=== PATIENT | male | born 1985 | race Two or more races ===

== ENCOUNTER 2024-03-24 15:55 | Inpatient (IN) | payer MEDICAID ==
[~2024-03-24] VITALS: Ht 182.9 cm; Wt 97.3 kg
[2024-03-24] MEDS: HALOPERIDOL LACTATE 5 MG/ML VIAL IM ONE (19:30)
[2024-03-24] MEDS: LORazepam 2 MG/ML VIAL IM ONE (19:31)
[2024-03-24] MEDS: DiphenhydrAMINE HCL 50 MG/ML VIAL IM ONE (19:31)
[2024-03-24 21:17] LABS: BASOPHILS % (AUTO) 0.9 % (0.0-2.0); EOSINOPHILS % (AUTO) 2.9 % (1.0-6.0); HEMATOCRIT 43.8 % (41-53); HEMOGLOBIN 14.5 g/dL (13.5-17.5); LYMPHOCYTES # (AUTO) 3.3 K/uL (1.0-4.8); LYMPHOCYTES % (AUTO) 35.8 % (22.0-44.0); MEAN CORPUSCULAR HEMOGLOBIN 29.3 pg (26.0-34.0); MEAN CORPUSCULAR HGB CONC 33.2 G/dL (31.0-37.0); MEAN CORPUSCULAR VOLUME 88 fL (80-100); MONOCYTES # (AUTO) 0.8 K/uL (0.1-1.0); NEUTROPHILS # (AUTO) 4.7 K/uL (1.8-7.7); NEUTROPHILS % (AUTO) 51.4 % (40.0-70.0); PLATELET COUNT (AUTO) 236 K/uL (150-450); RED BLOOD CELL COUNT(AUTO) 4.96 MIL/uL (4.50-5.90); RED CELL DISTRIBUTION WIDTH 14.2 % (11.5-14.5); WHITE BLOOD COUNT (AUTO) 9.2 K/uL (4.5-11.0)
[2024-03-24 21:25] LABS: COVID AG,FIA SOURCE NASAL SWAB
[2024-03-24 21:34] LABS: ANION GAP 10 mmol/L (8-16); CALCIUM, TOTAL 8.5 mg/dL (8.8-10.5); CARBON DIOXIDE 26 mmol/L (22-29); CHLORIDE 102 mmol/L (98-107); CREATININE 0.99 mg/dL (0.60-1.30); GLOMERULAR FILTR. RATE CALC > 60 mL/min (>60); GLUCOSE,RANDOM 88 mg/dL (70-110); SODIUM SERUM 138 mmol/L (136-145); UREA NITROGEN, BLOOD 11 mg/dL (7-18)
[2024-03-24 22:03] LABS: SARS-COV2 (COVID) ANTIGEN,FIA Negative (Negative)
[2024-03-24 22:06] LABS: ALCOHOL, BLOOD (SERUM) < 3 mg/dL (0-10)
[2024-03-25 10:39] VITALS: BP 139/85; PULSE 69; RESP 17; TEMP 97.6; O2SAT 99
[2024-03-25] MEDS ORDERED: OLANZapine 5 MG TABLET PO PRN (13:00)
[2024-03-25] MEDS: DIVALPROEX SODIUM 500 MG DR TABLET PO SCH (15:42)
[2024-03-25 22:28] VITALS: BP 136/86; PULSE 107; RESP 18; TEMP 97.1; O2SAT 98
[2024-03-26] MEDS ORDERED: HALOPERIDOL 5 MG TABLET PO PRN (07:15)
[2024-03-26] MEDS ORDERED: LORazepam 2 MG TABLET PO PRN (07:15)
[2024-03-26] MEDS ORDERED: NICOTINE 14 MG/24 HOUR PATCH TD PRN (09:45)
[2024-03-26] MEDS ORDERED: MAG HYDROX/ALUMINUM HYD/SIMETH ES 30 ML SUSPENSION UDCUP PO PRN (09:45)
[2024-03-26] MEDS ORDERED: PETROLATUM,WHITE 28 GM JELLY TP PRN (09:45)
[2024-03-26] MEDS ORDERED: DOCUSATE SODIUM 100 MG CAPSULE PO PRN (09:45)
[2024-03-26] MEDS ORDERED: ONDANSETRON 4 MG TABLET PO PRN (09:45)
[2024-03-26] MEDS ORDERED: MAGNESIUM HYDROXIDE SUSPENSION 30 ML UDCUP PO PRN (09:45)
[2024-03-26] MEDS ORDERED: IBUPROFEN 400 MG TABLET PO PRN (09:45)
[2024-03-26] MEDS ORDERED: ALBUTEROL SULFATE HFA 90 MCG/PUFF 8 GM INHALER IH PRN (09:45)
[2024-03-26] MEDS ORDERED: LOPERAMIDE HCL 2 MG CAPSULE PO PRN (09:45)
[2024-03-26] MEDS ORDERED: CloNIDine HCL 0.1 MG TABLET PO PRN (09:45)
[2024-03-26] MEDS ORDERED: ACETAMINOPHEN 325 MG TABLET PO PRN (09:45)
[2024-03-26] MEDS ORDERED: GuaiFENesin/D-METHORPHAN [SUGAR-FREE] 200-20MG/10 ML SYRUP UDCUP PO PRN (09:45)
[2024-03-26 11:06] VITALS: BP 139/99; PULSE 96; RESP 18; TEMP 97.1; O2SAT 95
[2024-03-26 13:27] LABS: APPEARANCE,URINE CLEAR (CLEAR); BILIRUBIN,URINE NEGATIVE (NEGATIVE); COLOR,URINE YELLOW (YELLOW); GLUCOSE, URINE (UA) NEGATIVE (NEGATIVE); KETONES,URINE TRACE mg/dL (NEGATIVE); LEUKOCYTE ESTERASE ,URINE NEGATIVE (NEGATIVE); NITRATE,URINE NEGATIVE (NEGATIVE); OCCULT BLOOD,URINE NEGATIVE (NEGATIVE); PROTEIN,URINE TRACE mg/dL (NEGATIVE); SPECIFIC GRAVITIY, URINE 1.029 (1.003-1.030)
[2024-03-26 13:40] LABS: ALCOHOL, URINE DRUG SCREEN NEGATIVE (NEGATIVE); AMPHET/METH SCREEN,URINE NEGATIVE (NEGATIVE); BARBITURATE SCREEN, URINE NEGATIVE (NEGATIVE); BENZODIAZEPINES SCREEN,URINE NEGATIVE (NEGATIVE); CANNABINOID SCREEN,URINE POSITIVE (NEGATIVE); COCAINE SCREEN,URINE NEGATIVE (NEGATIVE); METHADONE SCREEN, URINE NEGATIVE (NEGATIVE); OPIATE SCREEN,URINE NEGATIVE (NEGATIVE); PHENCYCLIDINE SCREEN,URINE NEGATIVE (NEGATIVE)
[2024-03-26 20:02] VITALS: RESP 18; TEMP 97.1
[2024-03-26] MEDS: ZOLPIDEM TARTRATE 10 MG TABLET PO PRN (21:14)
[2024-03-27 08:09] VITALS: BP 120/80; PULSE 70; RESP 17; TEMP 98; O2SAT 96
[2024-03-27 21:45] VITALS: RESP 18
[2024-03-28 08:32] VITALS: BP 121/69; PULSE 100; RESP 17; TEMP 97.3; O2SAT 98
[2024-03-28 08:49] LABS: CHOL/HDL RATIO 6.8 (4.2-7.3); THYROID STIMULATING HORMONE 5.23 uIU/mL (0.36-3.74)
[2024-03-28 20:22] VITALS: BP 144/94; PULSE 87; RESP 18; TEMP 97.7; O2SAT 98
[2024-03-29 09:14] VITALS: BP 132/83; PULSE 84; RESP 19; TEMP 97.1; O2SAT 97
[2024-03-29 20:32] VITALS: BP 129/76; PULSE 80; RESP 18; TEMP 97.6
[2024-03-30 08:49] VITALS: BP 134/90; PULSE 81; RESP 18; TEMP 97.3
[2024-03-30 20:37] VITALS: BP 132/86; PULSE 86; RESP 18; TEMP 97.3
[2024-03-31 08:08] VITALS: BP 115/76; PULSE 98; RESP 18; TEMP 97.5; O2SAT 98
[2024-03-31 20:10] VITALS: BP 132/67; PULSE 79; RESP 18; TEMP 97.3; O2SAT 98
[2024-04-01 08:07] VITALS: BP 137/89; PULSE 87; RESP 18; TEMP 97.2; O2SAT 96
[2024-04-01 20:19] VITALS: BP 134/76; PULSE 78; RESP 18; TEMP 97.9; O2SAT 98
[2024-04-02 08:10] VITALS: BP 115/85; PULSE 87; RESP 18; TEMP 98.2; O2SAT 98
[2024-04-02] MEDS ORDERED: DIVA-112 PO (12:00)
== END 2024-04-02 19:40 | disposition home or self-care (01) | DRG 750 ==
LOC: EMS 16:00 → 3EC 03-25 08:44
PROVIDERS: ADMIT Psychiatry & Neurology Child & Adolescent Psychiatry; ATTEND Psychiatry & Neurology Child & Adolescent Psychiatry
PROC: GZHZZZZ Group Psychotherapy (ICD-10-PCS; principal; 2024-03-26)
PROC: GZ52ZZZ Individual Psychotherapy, Cognitive (ICD-10-PCS; 2024-03-26)
DX: F25.9 Schizoaffective disorder, unspecified (principal); E86.0 Dehydration; I10 Essential (primary) hypertension; Z20.822 Contact with and (suspected) exposure to COVID-19; F12.10 Cannabis abuse, uncomplicated; F84.0 Autistic disorder; Z79.899 Other long term (current) drug therapy
CPT/HCPCS: 80048; 80061; 80164; 80307; 81003; 83036; 84443; 85025; 99285; G0480; J1200; J1630; J2060

== ENCOUNTER 2024-07-13 09:09 | Emergency (ER) | payer MEDICAID ==
[~2024-07-13] VITALS: Ht 188 cm; Wt 102.0 kg
[~2024-07-13 09:09] MED LIST: DIVA-112 PO; GUAN1TAB22 PO; LITH300C3 PO; OMEG100033 PO; RISP-32 PO
[2024-07-13 09:52] VITALS: TEMP 98.6
[2024-07-13 10:13] LABS: COVID AG,FIA SOURCE NASAL SWAB
[2024-07-13 10:38] LABS: SARS-COV2 (COVID) ANTIGEN,FIA Negative (Negative)
[2024-07-13 11:37] LABS: BASOPHILS % (AUTO) 1.1 % (0.0-2.0); EOSINOPHILS % (AUTO) 1.7 % (1.0-6.0); HEMATOCRIT 42.5 % (41-53); HEMOGLOBIN 14.1 g/dL (13.5-17.5); LYMPHOCYTES % (AUTO) 24.6 % (22.0-44.0); MEAN CORPUSCULAR HEMOGLOBIN 30.4 pg (26.0-34.0); MEAN CORPUSCULAR HGB CONC 33.3 G/dL (31.0-37.0); MEAN CORPUSCULAR VOLUME 91 fL (80-100); MONOCYTES # (AUTO) 0.9 K/uL (0.1-1.0); MONOCYTES % (AUTO) 7.7 % (2.0-9.0); NEUTROPHILS # (AUTO) 7.8 K/uL (1.8-7.7); NEUTROPHILS % (AUTO) 64.9 % (40.0-70.0); PLATELET COUNT (AUTO) 333 K/uL (150-450); RED BLOOD CELL COUNT(AUTO) 4.65 MIL/uL (4.50-5.90); RED CELL DISTRIBUTION WIDTH 13.3 % (11.5-14.5); WHITE BLOOD COUNT (AUTO) 12.1 K/uL (4.5-11.0)
[2024-07-13 11:46] LABS: ANION GAP 12 mmol/L (8-16); CALCIUM, TOTAL 8.5 mg/dL (8.8-10.5); CARBON DIOXIDE 25 mmol/L (22-29); CHLORIDE 103 mmol/L (98-107); CREATININE 1.01 mg/dL (0.60-1.30); GLOMERULAR FILTR. RATE CALC > 60 mL/min (>60); GLUCOSE,RANDOM 97 mg/dL (70-110); POTASSIUM 3.9 mmol/L (3.5-5.1); SODIUM SERUM 140 mmol/L (136-145); UREA NITROGEN, BLOOD 8 mg/dL (7-18)
[2024-07-13] MEDS: DiphenhydrAMINE HCL 50 MG/ML VIAL IM ONE (12:13)
[2024-07-13] MEDS: HALOPERIDOL LACTATE 5 MG/ML VIAL IM ONE (12:13)
[2024-07-13] MEDS: LORazepam 2 MG/ML VIAL IM ONE (12:14)
[2024-07-13 12:23] LABS: ALCOHOL, BLOOD (SERUM) < 3 mg/dL (0-10)
[2024-07-13 15:05] LABS: APPEARANCE,URINE CLEAR (CLEAR); BILIRUBIN,URINE NEGATIVE (NEGATIVE); COLOR,URINE LIGHT YELLOW (YELLOW); GLUCOSE, URINE (UA) NEGATIVE (NEGATIVE); KETONES,URINE NEGATIVE (NEGATIVE); LEUKOCYTE ESTERASE ,URINE NEGATIVE (NEGATIVE); NITRATE,URINE NEGATIVE (NEGATIVE); OCCULT BLOOD,URINE NEGATIVE (NEGATIVE); PH,URINE 6.5 (5.0-8.0); PH,URINE DRUG SCREEN 6.5 (5.0-8.0); PROTEIN,URINE NEGATIVE (NEGATIVE); SPECIFIC GRAVITIY, URINE 1.011 (1.003-1.030); UROBILINOGEN,URINE <=1.0 mg/dL (<=1.0)
[2024-07-13 15:21] LABS: ALCOHOL, URINE DRUG SCREEN NEGATIVE (NEGATIVE); AMPHET/METH SCREEN,URINE NEGATIVE (NEGATIVE); BARBITURATE SCREEN, URINE NEGATIVE (NEGATIVE); BENZODIAZEPINES SCREEN,URINE NEGATIVE (NEGATIVE); CANNABINOID SCREEN,URINE NEGATIVE (NEGATIVE); COCAINE SCREEN,URINE NEGATIVE (NEGATIVE); METHADONE SCREEN, URINE NEGATIVE (NEGATIVE); OPIATE SCREEN,URINE NEGATIVE (NEGATIVE); PHENCYCLIDINE SCREEN,URINE NEGATIVE (NEGATIVE)
[2024-07-13 18:01] VITALS: BP 105/53; PULSE 80; RESP 16; O2SAT 99
== END 2024-07-13 18:35 | disposition admitted as inpatient to this hospital (09) ==
LOC: EMS 09:09
DX: F25.0 Schizoaffective disorder, bipolar type (principal); F84.0 Autistic disorder; Z79.899 Other long term (current) drug therapy; Z20.822 Contact with and (suspected) exposure to COVID-19
CPT/HCPCS: 99291; 87426; 80048; 85025; 36415; 96372; 80307; 81003; G0480; J1200; J1630; J2060

== ENCOUNTER 2024-07-27 08:41 | Emergency (ER) | payer MEDICAID ==
[~2024-07-27] VITALS: Ht 205.7 cm; Wt 89.2 kg
[~2024-07-27 08:41] MED LIST changes: -OMEG100033 PO
[2024-07-27 10:17] VITALS: BP 147/70; PULSE 73; RESP 16; TEMP 98.7; O2SAT 98
[2024-07-27 10:27] LABS: BASOPHILS % (AUTO) 0.6 % (0.0-2.0); EOSINOPHILS % (AUTO) 1.5 % (1.0-6.0); HEMATOCRIT 44.6 % (41-53); HEMOGLOBIN 14.5 g/dL (13.5-17.5); LYMPHOCYTES # (AUTO) 2.6 K/uL (1.0-4.8); LYMPHOCYTES % (AUTO) 19.4 % (22.0-44.0); MEAN CORPUSCULAR HEMOGLOBIN 30.1 pg (26.0-34.0); MEAN CORPUSCULAR HGB CONC 32.7 G/dL (31.0-37.0); MEAN CORPUSCULAR VOLUME 92 fL (80-100); MONOCYTES % (AUTO) 7.2 % (2.0-9.0); NEUTROPHILS # (AUTO) 9.5 K/uL (1.8-7.7); NEUTROPHILS % (AUTO) 71.3 % (40.0-70.0); PLATELET COUNT (AUTO) 284 K/uL (150-450); RED BLOOD CELL COUNT(AUTO) 4.83 MIL/uL (4.50-5.90); RED CELL DISTRIBUTION WIDTH 13.5 % (11.5-14.5); WHITE BLOOD COUNT (AUTO) 13.4 K/uL (4.5-11.0)
[2024-07-27 10:42] LABS: ANION GAP 10 mmol/L (8-16); CALCIUM, TOTAL 8.6 mg/dL (8.8-10.5); CARBON DIOXIDE 27 mmol/L (22-29); CHLORIDE 102 mmol/L (98-107); CREATININE 1.03 mg/dL (0.60-1.30); GLOMERULAR FILTR. RATE CALC > 60 mL/min (>60); GLUCOSE,RANDOM 90 mg/dL (70-110); SODIUM SERUM 139 mmol/L (136-145); UREA NITROGEN, BLOOD 5 mg/dL (7-18)
[2024-07-27 11:22] LABS: ALCOHOL, BLOOD (SERUM) < 3 mg/dL (0-10)
[2024-07-27 11:29] LABS: COVID AG,FIA SOURCE NASAL SWAB
[2024-07-27 11:33] LABS: APPEARANCE,URINE CLEAR (CLEAR); BILIRUBIN,URINE NEGATIVE (NEGATIVE); COLOR,URINE LIGHT YELLOW (YELLOW); GLUCOSE, URINE (UA) NEGATIVE (NEGATIVE); KETONES,URINE NEGATIVE (NEGATIVE); LEUKOCYTE ESTERASE ,URINE NEGATIVE (NEGATIVE); NITRATE,URINE NEGATIVE (NEGATIVE); OCCULT BLOOD,URINE NEGATIVE (NEGATIVE); PROTEIN,URINE NEGATIVE (NEGATIVE); SPECIFIC GRAVITIY, URINE 1.008 (1.003-1.030); UROBILINOGEN,URINE <=1.0 mg/dL (<=1.0)
[2024-07-27 12:04] LABS: ALCOHOL, URINE DRUG SCREEN NEGATIVE (NEGATIVE); AMPHET/METH SCREEN,URINE NEGATIVE (NEGATIVE); BARBITURATE SCREEN, URINE NEGATIVE (NEGATIVE); BENZODIAZEPINES SCREEN,URINE NEGATIVE (NEGATIVE); CANNABINOID SCREEN,URINE NEGATIVE (NEGATIVE); COCAINE SCREEN,URINE NEGATIVE (NEGATIVE); METHADONE SCREEN, URINE NEGATIVE (NEGATIVE); OPIATE SCREEN,URINE NEGATIVE (NEGATIVE); PHENCYCLIDINE SCREEN,URINE NEGATIVE (NEGATIVE)
[2024-07-27 12:04] LABS: SARS-COV2 (COVID) ANTIGEN,FIA Negative (Negative)
== END 2024-07-27 14:31 | disposition home or self-care (01) ==
LOC: EMS 08:43
DX: F84.0 Autistic disorder (principal); F20.9 Schizophrenia, unspecified; Z79.899 Other long term (current) drug therapy; Z20.822 Contact with and (suspected) exposure to COVID-19
CPT/HCPCS: 99285; 87426; 80048; 81003; 85025; 36415; 80307; G0480

== ENCOUNTER 2024-07-27 18:10 | Emergency (ER) | payer MEDICAID, OTHER ==
[~2024-07-27] VITALS: Ht 177.8 cm; Wt 95.8 kg
[2024-07-27 19:51] VITALS: TEMP 98.7
[2024-07-27] MEDS: DIVALPROEX SODIUM 250 MG DR TABLET PO ONE (22:13)
[2024-07-27] MEDS: RisperiDONE 1 MG TABLET PO ONE (22:13)
[2024-07-27] MEDS: GuanFACINE HCL 1 MG TABLET PO ONE (22:20)
[2024-07-28 06:35] VITALS: BP 118/65; PULSE 80; RESP 18; O2SAT 99
== END 2024-07-28 06:36 | disposition home or self-care (01) ==
LOC: EMS 18:10
DX: F20.9 Schizophrenia, unspecified (principal); F84.0 Autistic disorder; Z79.899 Other long term (current) drug therapy
CPT/HCPCS: 99285; Z7502; Z7610

== ENCOUNTER 2024-07-28 13:00 | Inpatient (IN) | payer MEDICAID, OTHER ==
[~2024-07-28] VITALS: Ht 172.7 cm; Wt 85.8 kg
[~2024-07-28 13:00] MED LIST changes: -GUAN1TAB22 PO; +GUAN1TAB63 PO
[2024-07-28 14:44] LABS: BASOPHILS % (AUTO) 0.5 % (0.0-2.0); EOSINOPHILS % (AUTO) 1.6 % (1.0-6.0); HEMATOCRIT 43.7 % (41-53); HEMOGLOBIN 14.3 g/dL (13.5-17.5); LYMPHOCYTES # (AUTO) 2.8 K/uL (1.0-4.8); LYMPHOCYTES % (AUTO) 18.9 % (22.0-44.0); MEAN CORPUSCULAR HGB CONC 32.7 G/dL (31.0-37.0); MEAN CORPUSCULAR VOLUME 92 fL (80-100); MONOCYTES # (AUTO) 1.1 K/uL (0.1-1.0); MONOCYTES % (AUTO) 7.5 % (2.0-9.0); NEUTROPHILS # (AUTO) 10.5 K/uL (1.8-7.7); NEUTROPHILS % (AUTO) 71.5 % (40.0-70.0); PLATELET COUNT (AUTO) 310 K/uL (150-450); RED BLOOD CELL COUNT(AUTO) 4.76 MIL/uL (4.50-5.90); RED CELL DISTRIBUTION WIDTH 13.9 % (11.5-14.5); WHITE BLOOD COUNT (AUTO) 14.7 K/uL (4.5-11.0)
[2024-07-28 14:49] LABS: ANION GAP 12 mmol/L (8-16); CALCIUM, TOTAL 8.9 mg/dL (8.8-10.5); CARBON DIOXIDE 28 mmol/L (22-29); CHLORIDE 103 mmol/L (98-107); GLOMERULAR FILTR. RATE CALC > 60 mL/min (>60); GLUCOSE,RANDOM 101 mg/dL (70-110); SODIUM SERUM 142 mmol/L (136-145); UREA NITROGEN, BLOOD 6 mg/dL (7-18)
[2024-07-28 15:03] LABS: ALCOHOL, BLOOD (SERUM) < 3 mg/dL (0-10)
[2024-07-28 15:49] LABS: COVID AG,FIA SOURCE NASAL SWAB
[2024-07-28 16:06] LABS: SARS-COV2 (COVID) ANTIGEN,FIA Negative (Negative)
[2024-07-28 20:30] VITALS: BP 154/99; PULSE 83; RESP 18; TEMP 97.2; O2SAT 99
[2024-07-28] MEDS ORDERED: INFLUENZA VIRUS VACCINE TVS (6MO+) 2024-25/PF 45 MCG/0.5 ML SYRINGE IM. ONE (21:30)
[2024-07-29 08:22] VITALS: BP 132/73; PULSE 98; RESP 17; TEMP 97.8; O2SAT 96
[2024-07-29 08:23] VITALS: BP 132/73; PULSE 98; RESP 17; TEMP 97.8; O2SAT 96
[2024-07-29 08:30] VITALS: BP 132/73; PULSE 98; RESP 17; TEMP 97.8; O2SAT 96
[2024-07-29 09:13] LABS: HEMOGLOBIN A1C 5.1 % (3.8-5.6)
[2024-07-29 09:19] LABS: CHOL/HDL RATIO 4.4 (4.2-7.3)
[2024-07-29 09:22] LABS: LITHIUM 0.2 mmol/L (0.60-1.20)
[2024-07-29] MEDS ORDERED: ALBUTEROL SULFATE HFA 90 MCG/PUFF 8 GM INHALER IH PRN (09:45)
[2024-07-29] MEDS ORDERED: NICOTINE 14 MG/24 HOUR PATCH TD PRN (09:45)
[2024-07-29] MEDS ORDERED: MAGNESIUM HYDROXIDE SUSPENSION 30 ML UDCUP PO PRN (09:45)
[2024-07-29] MEDS ORDERED: ACETAMINOPHEN 325 MG TABLET PO PRN (09:45)
[2024-07-29] MEDS ORDERED: IBUPROFEN 400 MG TABLET PO PRN (09:45)
[2024-07-29] MEDS ORDERED: PETROLATUM,WHITE 28 GM JELLY TP PRN (09:45)
[2024-07-29] MEDS ORDERED: MAG HYDROX/ALUMINUM HYD/SIMETH ES 30 ML SUSPENSION UDCUP PO PRN (09:45)
[2024-07-29] MEDS ORDERED: LOPERAMIDE HCL 2 MG CAPSULE PO PRN (09:45)
[2024-07-29] MEDS ORDERED: ONDANSETRON 4 MG TABLET PO PRN (09:45)
[2024-07-29] MEDS ORDERED: CloNIDine HCL 0.1 MG TABLET PO PRN (09:45)
[2024-07-29] MEDS ORDERED: DOCUSATE SODIUM 100 MG CAPSULE PO PRN (09:45)
[2024-07-29] MEDS: LITHIUM CARBONATE 300 MG CAPSULE PO SCH (16:06)
[2024-07-29] MEDS: DIVALPROEX SODIUM 500 MG ER TABLET PO SCH (16:06)
[2024-07-29] MEDS: RisperiDONE 2 MG TABLET PO SCH (16:06)
[2024-07-29 20:07] VITALS: BP 130/83; PULSE 72; RESP 16; TEMP 97.8; O2SAT 97
[2024-07-29 20:55] VITALS: BP 130/83; PULSE 72; RESP 18; TEMP 97.8; O2SAT 97
[2024-07-29] MEDS: LORazepam 2 MG TABLET PO PRN (21:03)
[2024-07-29] MEDS: GuanFACINE HCL 1 MG TABLET PO SCH (21:03)
[2024-07-29] MEDS: ZOLPIDEM TARTRATE 10 MG TABLET PO PRN (21:03)
[2024-07-29] MEDS: HALOPERIDOL 5 MG TABLET PO PRN (21:04)
[2024-07-30 08:07] VITALS: BP 110/67; PULSE 91; RESP 16; TEMP 97.6; O2SAT 97
[2024-07-30 10:00] VITALS: BP 110/67; PULSE 91; RESP 16; TEMP 97.6; O2SAT 0
[2024-07-30 20:04] VITALS: BP 147/87; PULSE 90; RESP 16; TEMP 98.1; O2SAT 98
[2024-07-30 21:11] VITALS: RESP 18
[2024-07-31 08:38] VITALS: BP 120/61; PULSE 68; RESP 17; TEMP 97.7; O2SAT 98
[2024-07-31 08:54] LABS: HEMOGLOBIN A1C 5.1 % (3.8-5.6)
[2024-07-31 09:13] LABS: CHOL/HDL RATIO 4.7 (4.2-7.3); THYROID STIMULATING HORMONE 5.93 uIU/mL (0.36-3.74)
[2024-07-31 20:39] VITALS: BP 121/56; PULSE 96; RESP 18; TEMP 97.7; O2SAT 99
[2024-08-01 08:30] VITALS: BP 106/62; PULSE 74; RESP 16; TEMP 97.3; O2SAT 97
[2024-08-01 20:00] VITALS: BP 117/74; PULSE 94; RESP 18; TEMP 97.6; O2SAT 97
[2024-08-02 08:06] VITALS: BP 118/84; PULSE 94; RESP 16; TEMP 98.1; O2SAT 98
[2024-08-02 08:56] LABS: BASOPHILS % (AUTO) 0.5 % (0.0-2.0); EOSINOPHILS % (AUTO) 2.8 % (1.0-6.0); HEMATOCRIT 42.6 % (41-53); HEMOGLOBIN 14.3 g/dL (13.5-17.5); LYMPHOCYTES # (AUTO) 1.8 K/uL (1.0-4.8); LYMPHOCYTES % (AUTO) 16.2 % (22.0-44.0); MEAN CORPUSCULAR HGB CONC 33.6 G/dL (31.0-37.0); MEAN CORPUSCULAR VOLUME 92 fL (80-100); MONOCYTES # (AUTO) 1.6 K/uL (0.1-1.0); MONOCYTES % (AUTO) 14.4 % (2.0-9.0); NEUTROPHILS # (AUTO) 7.5 K/uL (1.8-7.7); NEUTROPHILS % (AUTO) 66.1 % (40.0-70.0); PLATELET COUNT (AUTO) 252 K/uL (150-450); RED BLOOD CELL COUNT(AUTO) 4.62 MIL/uL (4.50-5.90); RED CELL DISTRIBUTION WIDTH 13.3 % (11.5-14.5); WHITE BLOOD COUNT (AUTO) 11.4 K/uL (4.5-11.0)
[2024-08-02] MEDS ORDERED: LORazepam 2 MG/ML VIAL IM ONE (13:45)
[2024-08-02] MEDS ORDERED: DiphenhydrAMINE HCL 50 MG/ML VIAL IM ONE (13:45)
[2024-08-02] MEDS ORDERED: HALOPERIDOL LACTATE 5 MG/ML VIAL IM ONE (13:45)
[2024-08-02 20:17] VITALS: BP 120/72; PULSE 71; RESP 16; TEMP 97.5; O2SAT 99
[2024-08-03 08:21] VITALS: BP 109/66; PULSE 90; RESP 16; TEMP 98.1; O2SAT 97
[2024-08-03 08:53] LABS: LITHIUM 0.49 mmol/L (0.60-1.20)
[2024-08-03 21:14] VITALS: BP 119/75; PULSE 83; RESP 16; TEMP 97.5; O2SAT 98
[2024-08-04 08:40] VITALS: BP 100/68; PULSE 78; RESP 16; TEMP 97.1; O2SAT 96
[2024-08-04 20:41] VITALS: BP 136/95; PULSE 99; RESP 16; TEMP 98.3; O2SAT 99
[2024-08-05 08:08] VITALS: BP 106/63; PULSE 66; RESP 15; TEMP 97.7; O2SAT 96
[2024-08-05 20:14] VITALS: BP 131/84; PULSE 92; RESP 16; TEMP 97.7; O2SAT 99
[2024-08-06 09:18] VITALS: BP 102/63; PULSE 64; RESP 16; TEMP 97.9; O2SAT 98
[2024-08-06 20:05] VITALS: RESP 16; TEMP 97.5
[2024-08-07 08:20] VITALS: BP 101/66; PULSE 80; RESP 16; TEMP 97.4; O2SAT 98
[2024-08-07 08:37] LABS: BASOPHILS % (AUTO) 0.7 % (0.0-2.0); EOSINOPHILS % (AUTO) 2.5 % (1.0-6.0); HEMATOCRIT 43.5 % (41-53); HEMOGLOBIN 14.1 g/dL (13.5-17.5); LYMPHOCYTES # (AUTO) 2.1 K/uL (1.0-4.8); LYMPHOCYTES % (AUTO) 23.2 % (22.0-44.0); MEAN CORPUSCULAR HEMOGLOBIN 30.1 pg (26.0-34.0); MEAN CORPUSCULAR HGB CONC 32.5 G/dL (31.0-37.0); MEAN CORPUSCULAR VOLUME 93 fL (80-100); MONOCYTES % (AUTO) 10.7 % (2.0-9.0); NEUTROPHILS # (AUTO) 5.7 K/uL (1.8-7.7); NEUTROPHILS % (AUTO) 62.9 % (40.0-70.0); PLATELET COUNT (AUTO) 344 K/uL (150-450); RED BLOOD CELL COUNT(AUTO) 4.69 MIL/uL (4.50-5.90); RED CELL DISTRIBUTION WIDTH 13.5 % (11.5-14.5)
[2024-08-07 20:04] VITALS: BP 108/68; PULSE 76; RESP 16; TEMP 97; O2SAT 96
[2024-08-08 10:12] VITALS: BP 115/83; PULSE 92; RESP 16; TEMP 97.4; O2SAT 99
[2024-08-08 12:43] VITALS: BP 113/75; PULSE 87; RESP 16; TEMP 97.8; O2SAT 97
[2024-08-08 13:31] VITALS: BP 115/71; PULSE 88; RESP 16; TEMP 98.3; O2SAT 97
[2024-08-08 13:59] VITALS: BP 120/78; PULSE 91; RESP 16; TEMP 97.7; O2SAT 97
[2024-08-08 14:43] VITALS: BP 113/75; PULSE 87; RESP 16; TEMP 97.8; O2SAT 97
[2024-08-08 21:00] VITALS: BP 122/72; PULSE 74; RESP 15; TEMP 97.6; O2SAT 97
[2024-08-09 08:35] VITALS: BP 129/78; PULSE 78; RESP 17; TEMP 98.4; O2SAT 97
[2024-08-09 20:05] VITALS: BP 94/60; PULSE 65; RESP 17; TEMP 98; O2SAT 95
[2024-08-09 21:00] VITALS: BP 106/65; RESP 18; O2SAT 98
[2024-08-10 11:22] VITALS: BP 139/94; RESP 16; O2SAT 97
[2024-08-10 11:38] VITALS: BP 139/94; PULSE 97; RESP 16; TEMP 96.9; O2SAT 98
[2024-08-10 20:14] VITALS: BP 125/86; PULSE 91; RESP 18; TEMP 97.7; O2SAT 99
[2024-08-11 08:27] VITALS: BP 117/67; PULSE 75; RESP 18; TEMP 97; O2SAT 98
[2024-08-11 09:05] VITALS: BP 117/67; RESP 18; O2SAT 98
[2024-08-11 22:02] VITALS: BP 125/62; PULSE 77; RESP 16; TEMP 97.6; O2SAT 96
[2024-08-12 08:08] VITALS: BP 125/78; PULSE 99; RESP 17; TEMP 97; O2SAT 99
[2024-08-12 20:02] VITALS: BP 117/78; PULSE 83; RESP 16; TEMP 97.8; O2SAT 98
[2024-08-13 08:48] VITALS: BP 134/76; PULSE 99; RESP 17; TEMP 97.2; O2SAT 99
[2024-08-13 20:07] VITALS: BP 129/75; PULSE 89; RESP 18; TEMP 97.9
[2024-08-14 09:08] VITALS: BP 122/71; PULSE 95; RESP 18; TEMP 97.4; O2SAT 100
[2024-08-14 20:49] VITALS: BP 129/75; PULSE 70; RESP 16; TEMP 97.1; O2SAT 96
[2024-08-15 08:15] VITALS: BP 131/93; PULSE 91; RESP 17; TEMP 98; O2SAT 100
[2024-08-15] MEDS: THIAMINE 100 MG TABLET PO SCH (08:25)
[2024-08-15] MEDS: MULTIVITAMINS, THERAPEUTIC TABLET PO SCH (08:25)
[2024-08-15 20:15] VITALS: RESP 16
[2024-08-16 08:15] VITALS: BP 131/79; RESP 16; TEMP 98; O2SAT 96
[2024-08-16] MEDS: DiphenhydrAMINE HCL 50 MG/ML VIAL IM ONE (11:47)
[2024-08-16] MEDS: LORazepam 2 MG/ML VIAL IM ONE (11:47)
[2024-08-16] MEDS: HALOPERIDOL LACTATE 5 MG/ML VIAL IM ONE (11:49)
[2024-08-16 20:05] VITALS: BP 103/63; PULSE 75; RESP 16; TEMP 98
[2024-08-17 08:20] VITALS: BP 131/67; RESP 16; TEMP 98.2; O2SAT 99
[2024-08-18 08:06] VITALS: BP 101/61; PULSE 63; RESP 17; TEMP 97.5; O2SAT 99
[2024-08-18 20:13] VITALS: BP 105/60; PULSE 67; RESP 16; TEMP 97.2; O2SAT 98
[2024-08-19 08:06] VITALS: BP 128/68; PULSE 91; RESP 16; TEMP 97.8; O2SAT 100
[2024-08-19 20:12] VITALS: BP 132/83; PULSE 89; RESP 18; TEMP 97.7
[2024-08-20 08:12] VITALS: BP 142/89; PULSE 100; RESP 17; TEMP 97.1; O2SAT 95
[2024-08-20 12:28] VITALS: BP 115/73; PULSE 96; RESP 16; TEMP 96.3; O2SAT 96
[2024-08-20 12:43] VITALS: BP 139/85; PULSE 99; RESP 16; TEMP 97.3; O2SAT 96
[2024-08-20 13:13] VITALS: BP 133/78; PULSE 89; RESP 18; TEMP 98.3
[2024-08-20 20:42] VITALS: RESP 18
[2024-08-20 23:50] VITALS: BP 123/81; PULSE 76; RESP 18; TEMP 97.2
[2024-08-21 08:04] VITALS: BP 125/66; PULSE 96; RESP 16; TEMP 97.6; O2SAT 98
[2024-08-21 20:27] VITALS: BP 126/77; PULSE 94; RESP 17; TEMP 97.9
[2024-08-22 08:32] VITALS: BP 115/80; PULSE 97; RESP 18; TEMP 97.7; O2SAT 99
[2024-08-22 20:34] VITALS: BP 128/74; PULSE 89; RESP 18; TEMP 97.6; O2SAT 95
[2024-08-23 08:45] VITALS: BP 134/60; PULSE 101; RESP 18; TEMP 97.1; O2SAT 99
[2024-08-24 09:14] VITALS: BP 111/65; PULSE 100; RESP 17; TEMP 97.7; O2SAT 100
[2024-08-24 20:14] VITALS: BP 123/74; PULSE 86; RESP 18; TEMP 97.8; O2SAT 96
[2024-08-25 09:52] VITALS: BP 139/93; PULSE 102; RESP 18; TEMP 97.8; O2SAT 96
[2024-08-25 20:00] VITALS: BP 113/75; PULSE 80; RESP 16; TEMP 98.5; O2SAT 95
[2024-08-26 08:28] VITALS: BP 140/90; PULSE 97; RESP 17; TEMP 97.7; O2SAT 100
[2024-08-26 20:20] VITALS: RESP 16
[2024-08-27 08:16] VITALS: BP 150/91; PULSE 97; RESP 16; TEMP 98; O2SAT 100
[2024-08-27 21:28] VITALS: BP 134/82; PULSE 108; RESP 18; TEMP 97.9; O2SAT 100
[2024-08-28 08:03] VITALS: BP 122/72; PULSE 100; RESP 18; TEMP 97.9; O2SAT 100
[2024-08-28 21:23] VITALS: BP 137/84; PULSE 96; RESP 18; TEMP 97.6; O2SAT 96
[2024-08-29 09:53] VITALS: BP 142/69; PULSE 102; RESP 19; TEMP 97.8; O2SAT 99
[2024-08-29 20:20] VITALS: RESP 17
[2024-08-30 09:51] VITALS: BP 140/90; PULSE 99; RESP 20; TEMP 97.5; O2SAT 99
[2024-08-30] MEDS: PERMETHRIN 1% 60 ML LOTION TP ONE (14:45)
[2024-08-30 21:11] VITALS: BP 128/77; PULSE 99; RESP 19; TEMP 97.3; O2SAT 100
[2024-08-31 08:19] VITALS: BP 155/82
[2024-08-31 20:05] VITALS: BP 136/70; PULSE 100; RESP 19; TEMP 97.5; O2SAT 100
[2024-09-01 08:39] VITALS: BP 145/87; PULSE 100; RESP 18; TEMP 97.6; O2SAT 97
[2024-09-01 20:02] VITALS: BP 130/76; PULSE 92; RESP 18; TEMP 97.9; O2SAT 99
[2024-09-02 08:43] VITALS: BP 124/99; PULSE 104; RESP 18; TEMP 97.3; O2SAT 97
[2024-09-02] MEDS ORDERED: OXYMETAZOLINE HCL 0.05% 15 ML NASAL SPRAY NASAL PRN (10:00)
[2024-09-03 08:34] VITALS: BP 114/77; PULSE 98; RESP 16; TEMP 97.9; O2SAT 97
[2024-09-03 20:00] VITALS: BP 117/78; PULSE 71; RESP 16; TEMP 97.6; O2SAT 97
[2024-09-04 08:34] VITALS: BP 122/80; PULSE 100; RESP 17; TEMP 96.6; O2SAT 98
[2024-09-04 20:23] VITALS: BP 133/71; PULSE 96; RESP 18; TEMP 97.8; O2SAT 97
[2024-09-05 09:04] VITALS: BP 144/82; PULSE 122; RESP 18; TEMP 98.1; O2SAT 99
[2024-09-05 20:48] VITALS: BP 131/81; PULSE 101; RESP 16; TEMP 98.1; O2SAT 97
[2024-09-06 11:03] VITALS: BP 141/102; PULSE 100; RESP 19; TEMP 97.3; O2SAT 98
[2024-09-06 17:00] VITALS: BP 123/82; PULSE 86; RESP 16; TEMP 97.1; O2SAT 97
[2024-09-06 20:32] VITALS: BP 123/82; PULSE 86; RESP 16; TEMP 97.1; O2SAT 97
[2024-09-06] MEDS: GuaiFENesin/D-METHORPHAN [SUGAR-FREE] 200-20MG/10 ML SYRUP UDCUP PO PRN (21:19)
[2024-09-07 09:01] VITALS: BP 125/82; PULSE 86; RESP 16; TEMP 97.9; O2SAT 95
[2024-09-08 13:55] VITALS: BP 131/85; PULSE 91; RESP 16; TEMP 98.2; O2SAT 98
[2024-09-09 08:36] VITALS: BP 132/88; RESP 16; TEMP 98.3; O2SAT 99
[2024-09-09 20:05] VITALS: BP 132/87; PULSE 98; RESP 17; TEMP 98.1; O2SAT 96
[2024-09-10 08:04] VITALS: BP 127/87; PULSE 81; RESP 16; TEMP 97.5; O2SAT 97
[2024-09-10 17:45] VITALS: BP 133/90; RESP 18; O2SAT 98
[2024-09-10 23:18] VITALS: BP 139/93; RESP 18; O2SAT 98
[2024-09-11] MEDS: LORazepam 1 MG TABLET PO PRN (00:20)
[2024-09-11] MEDS: ZOLPIDEM TARTRATE 5 MG TABLET PO PRN (00:20)
[2024-09-11 08:12] VITALS: BP 131/90; RESP 17; O2SAT 99
[2024-09-11 08:29] VITALS: BP 134/93; PULSE 110; RESP 18; TEMP 97.8; O2SAT 96
[2024-09-11 12:30] VITALS: BP 134/91; PULSE 78; RESP 18; TEMP 97.4; O2SAT 99
[2024-09-11 22:24] VITALS: BP 148/89; PULSE 100; PULSE 110; RESP 18; TEMP 98.1; O2SAT 98; O2SAT 99
[2024-09-12 02:00] VITALS: BP 135/80; PULSE 89; RESP 18; TEMP 97.8; O2SAT 99
== END 2024-09-12 09:15 | disposition still patient (30) | DRG 750 ==
LOC: EMS 14:25 → B3A 18:59 → 3EI 09-11 22:00
PROVIDERS: ADMIT Psychiatry & Neurology Child & Adolescent Psychiatry; ATTEND Psychiatry & Neurology Child & Adolescent Psychiatry
PROC: GZHZZZZ Group Psychotherapy (ICD-10-PCS; principal; 2024-07-29)
PROC: GZ52ZZZ Individual Psychotherapy, Cognitive (ICD-10-PCS; 2024-07-29)
PROC: GZ56ZZZ Individual Psychotherapy, Supportive (ICD-10-PCS; 2024-07-29)
DX: F20.0 Paranoid schizophrenia (principal); E78.5 Hyperlipidemia, unspecified; Z20.822 Contact with and (suspected) exposure to COVID-19; F84.0 Autistic disorder
CPT/HCPCS: 73521; 80048; 80061; 80164; 80178; 83036; 84443; 85025; G0480; J1200; J1630; J2060

== ENCOUNTER 2024-08-08 16:09 | Emergency (ER) | payer MEDICAID, OTHER ==
[~2024-08-08] VITALS: Ht 172.7 cm; Wt 88.5 kg
[~2024-08-08 16:09] MED LIST changes: +GUAN1TAB22 PO; -GUAN1TAB63 PO
[2024-08-08 16:23] VITALS: TEMP 97.5
[2024-08-08] MEDS: LORazepam 2 MG/ML VIAL IM ONE (17:15)
[2024-08-08] MEDS: HALOPERIDOL LACTATE 5 MG/ML VIAL IM ONE (17:16)
[2024-08-08] MEDS: DiphenhydrAMINE HCL 50 MG/ML VIAL IM ONE (17:16)
[2024-08-08 18:27] VITALS: BP 110/67; PULSE 77; RESP 16; O2SAT 99
== END 2024-08-08 20:27 ==
LOC: EMS 16:09
DX: S00.83XA Contusion of other part of head, initial encounter (principal); R04.0 Epistaxis; F20.9 Schizophrenia, unspecified; Z79.899 Other long term (current) drug therapy; W19.XXXA Unspecified fall, initial encounter; Y93.89 Activity, other specified; Y92.89 Other specified places as the place of occurrence of the external cause; Y99.8 Other external cause status
CPT/HCPCS: 99285; 70450; 70486; 72125; 96372; J1200; J1630; J2060

== ENCOUNTER → 2024-08-20 | Emergency (ER) | payer OTHER ==
[~2024-08-20] VITALS: Ht 175.3 cm; Wt 86.4 kg
[2024-08-20 14:40] VITALS: TEMP 98.1
[2024-08-20] MEDS: DiphenhydrAMINE HCL 50 MG/ML VIAL IM ONE (16:53)
[2024-08-20] MEDS: LORazepam 2 MG/ML VIAL IM ONE (16:53)
[2024-08-20] MEDS: HALOPERIDOL LACTATE 5 MG/ML VIAL IM ONE (16:54)
[2024-08-20 22:14] VITALS: BP 135/78; PULSE 81; RESP 19; O2SAT 96
== END ==
LOC: EMS 13:46
DX: Z04.3 Encounter for examination and observation following other accident (principal); F20.9 Schizophrenia, unspecified; F84.0 Autistic disorder; Z79.899 Other long term (current) drug therapy
CPT/HCPCS: 99285; 70450; 72125; 96372; J1200; J1630; J2060

== ENCOUNTER 2024-09-11 15:36 | Emergency (ER) | payer OTHER ==
[~2024-09-11] VITALS: Ht 172.7 cm; Wt 77.3 kg
[~2024-09-11 15:36] MED LIST changes: -GUAN1TAB22 PO; +GUAN1TAB63 PO
[2024-09-11 16:05] VITALS: TEMP 97.9
[2024-09-11 16:23] LABS: COVID AG,FIA SOURCE NASAL SWAB
[2024-09-11 16:24] LABS: PLATELET COUNT (AUTO) 328 K/uL (150-450)
[2024-09-11 16:29] LABS: ANION GAP 13 mmol/L (8-16); BASOPHILS % (AUTO) 0.2 % (0.0-2.0); CALCIUM, TOTAL 9.4 mg/dL (8.8-10.5); CARBON DIOXIDE 22 mmol/L (22-29); CHLORIDE 100 mmol/L (98-107); CREATININE 0.73 mg/dL (0.60-1.30); EOSINOPHILS % (AUTO) 0.3 % (1.0-6.0); GLOMERULAR FILTR. RATE CALC > 60 mL/min (>60); GLUCOSE,RANDOM 99 mg/dL (70-110); HEMATOCRIT 42.3 % (41-53); HEMOGLOBIN 14.3 g/dL (13.5-17.5); LYMPHOCYTES # (AUTO) 1.7 K/uL (1.0-4.8); MEAN CORPUSCULAR HEMOGLOBIN 31.1 pg (26.0-34.0); MEAN CORPUSCULAR HGB CONC 33.7 G/dL (31.0-37.0); MEAN CORPUSCULAR VOLUME 92 fL (80-100); MONOCYTES # (AUTO) 1.6 K/uL (0.1-1.0); MONOCYTES % (AUTO) 10.2 % (2.0-9.0); NEUTROPHILS # (AUTO) 12.3 K/uL (1.8-7.7); NEUTROPHILS % (AUTO) 78.3 % (40.0-70.0); POTASSIUM 3.9 mmol/L (3.5-5.1); RED BLOOD CELL COUNT(AUTO) 4.58 MIL/uL (4.50-5.90); RED CELL DISTRIBUTION WIDTH 13.3 % (11.5-14.5); SODIUM SERUM 135 mmol/L (136-145); UREA NITROGEN, BLOOD 10 mg/dL (7-18); WHITE BLOOD COUNT (AUTO) 15.8 K/uL (4.5-11.0)
[2024-09-11 16:34] LABS: LITHIUM 0.54 mmol/L (0.60-1.20)
[2024-09-11 16:36] LABS: ALCOHOL, BLOOD (SERUM) < 3 mg/dL (0-10)
[2024-09-11 16:48] LABS: SARS-COV2 (COVID) ANTIGEN,FIA Negative (Negative)
[2024-09-11 20:47] VITALS: BP 135/84; PULSE 67; RESP 18; O2SAT 96
[2024-09-12 09:26] LABS: GLUCOMETER DEV NAME(LOC) 3E.I 2; GLUCOSE,POINT OF CARE 132 MG/DL (70-110)
== END 2024-09-11 21:52 | disposition admitted as inpatient to this hospital (09) ==
LOC: EMS 15:36
DX: S00.03XA Contusion of scalp, initial encounter (principal); F25.9 Schizoaffective disorder, unspecified; F84.0 Autistic disorder; Z79.899 Other long term (current) drug therapy; Z20.822 Contact with and (suspected) exposure to COVID-19; W22.8XXA Striking against or struck by other objects, initial encounter; Y93.02 Activity, running; Y92.89 Other specified places as the place of occurrence of the external cause; Y99.8 Other external cause status
CPT/HCPCS: 99285; 70450; 87426; 80048; 80164; 80178; 82962; 85025; 36415; 72125; G0480

== ENCOUNTER 2024-09-12 09:19 | Inpatient (IN) | payer OTHER ==
[~2024-09-12] VITALS: Ht 172.7 cm; Wt 80.2 kg
[2024-09-12] MEDS: *CLINICAL-CEFEPIME DOSING CLINICAL ONE ×2 (09:29→19:45)
[2024-09-12] MEDS ORDERED: 0.9% SODIUM CHLORIDE 10 ML SYRINGE IVP PRN (09:30)
[2024-09-12 09:33] LABS: EOSINOPHILS % (AUTO) 0 % (1.0-6.0); HEMATOCRIT 42.5 % (41-53); HEMOGLOBIN 14.3 g/dL (13.5-17.5); LYMPHOCYTES # (AUTO) 1.3 K/uL (1.0-4.8); MEAN CORPUSCULAR HEMOGLOBIN 31.1 pg (26.0-34.0); MEAN CORPUSCULAR HGB CONC 33.6 G/dL (31.0-37.0); MEAN CORPUSCULAR VOLUME 93 fL (80-100); MONOCYTES # (AUTO) 2.1 K/uL (0.1-1.0); MONOCYTES % (AUTO) 10.9 % (2.0-9.0); NEUTROPHILS # (AUTO) 15.4 K/uL (1.8-7.7); NEUTROPHILS % (AUTO) 82.1 % (40.0-70.0); PLATELET COUNT (AUTO) 340 K/uL (150-450); RED CELL DISTRIBUTION WIDTH 13.4 % (11.5-14.5); WHITE BLOOD COUNT (AUTO) 18.7 K/uL (4.5-11.0)
[2024-09-12 09:34] LABS: COVID AG,FIA SOURCE NASAL SWAB
[2024-09-12 09:43] LABS: ANION GAP 12 mmol/L (8-16); CALCIUM, TOTAL 9.1 mg/dL (8.8-10.5); CARBON DIOXIDE 23 mmol/L (22-29); CHLORIDE 100 mmol/L (98-107); CREATININE 0.85 mg/dL (0.60-1.30); GLOMERULAR FILTR. RATE CALC > 60 mL/min (>60); GLUCOSE,RANDOM 114 mg/dL (70-110); SODIUM SERUM 135 mmol/L (136-145); UREA NITROGEN, BLOOD 9 mg/dL (7-18)
[2024-09-12 09:48] LABS: ALANINE AMINOTRANSFERASE 56 U/L (12-78); ALBUMIN 3.6 g/dL (3.4-5.0); ALKALINE PHOSPHATASE 71 U/L (46-116); ASPARTATE AMINOTRANSFERASE 71 U/L (15-37); BILIRUBIN,TOTAL 1.6 mg/dL (0.1-1.0); TOTAL PROTEIN, SERUM 7.9 g/dL (6.4-8.2)
[2024-09-12 09:51] LABS: LACTIC ACID 2.8 mmol/L (0.4-2.0)
[2024-09-12] MEDS: CEFEPIME HCL 2 GM in DEXTROSE 5%-WATER 50 ML IV ONE ×2 (09:56→18:21)
[2024-09-12] MEDS: VANCOMYCIN 1.5 GM/WATER(PEG) 300 ML IV ONE (09:57)
[2024-09-12] MEDS: SODIUM CHLORIDE 0.9% 2,300 ML IV ONE (09:57)
[2024-09-12 10:05] LABS: INFLUENZA TYPE A NEGATIVE FOR TYPE A (NEGATIVE); INFLUENZA TYPE B NEGATIVE FOR TYPE B (NEGATIVE); SARS-COV2 (COVID) ANTIGEN,FIA Negative (Negative)
[2024-09-12] MEDS: ACETAMINOPHEN 1000 MG/ISO-OSM 100 ML IV ONE (11:03)
[2024-09-12 12:06] LABS: APPEARANCE,URINE CLEAR (CLEAR); BILIRUBIN,URINE NEGATIVE (NEGATIVE); COLOR,URINE YELLOW (YELLOW); GLUCOSE, URINE (UA) NEGATIVE (NEGATIVE); KETONES,URINE 80-100 mg/dL (NEGATIVE); LEUKOCYTE ESTERASE ,URINE NEGATIVE (NEGATIVE); NITRATE,URINE NEGATIVE (NEGATIVE); OCCULT BLOOD,URINE NEGATIVE (NEGATIVE); PH,URINE 6.5 (5.0-8.0); PROTEIN,URINE TRACE mg/dL (NEGATIVE); SPECIFIC GRAVITIY, URINE 1.028 (1.003-1.030)
[2024-09-12] MEDS: HydrALAZINE HCL 20 MG/ML VIAL IVP ONE (15:05)
[2024-09-12 16:21] VITALS: BP 156/88; PULSE 121; RESP 21; TEMP 98.6; O2SAT 95
[2024-09-12] MEDS ORDERED: SODIUM CHLORIDE 0.9% 500 ML IV ONE (18:12)
[2024-09-12] MEDS ORDERED: ZOLPIDEM TARTRATE 5 MG TABLET PO PRN (19:45)
[2024-09-12] MEDS ORDERED: ALBUTEROL SULFATE 2.5 MG/0.5 ML NEB SOLUTION NEB PRN (19:45)
[2024-09-12] MEDS ORDERED: IPRATROPIUM BROMIDE 0.5 MG/2.5 ML NEB SOLUTION NEB PRN (19:45)
[2024-09-12] MEDS ORDERED: ONDANSETRON HCL 4 MG/2 ML VIAL IVP PRN (19:45)
[2024-09-12] MEDS ORDERED: HYDROCODONE/ACETAMINOPHEN 5-325 MG TABLET PO PRN (19:45)
[2024-09-12 20:13] VITALS: BP 132/79; PULSE 115; RESP 20; TEMP 98.7; O2SAT 96
[2024-09-12] MEDS: VANCOMYCIN 1.25 GM/WATER(PEG) 250 ML IV ONE (21:17)
[2024-09-12] MEDS: SODIUM CHLORIDE 0.9% 1,000 ML IV SCH (21:17)
[2024-09-12] MEDS: GuanFACINE HCL 1 MG TABLET PO SCH (21:24)
[2024-09-12] MEDS: RisperiDONE 2 MG TABLET PO SCH (21:24)
[2024-09-12] MEDS: DIVALPROEX SODIUM 500 MG DR TABLET PO SCH (21:24)
[2024-09-12] MEDS: LITHIUM CARBONATE 300 MG CAPSULE PO SCH (21:24)
[2024-09-12] MEDS: HEPARIN SODIUM,PORCINE 5,000 UNITS/ML VIAL SQ SCH (23:47)
[2024-09-13] VITALS (7 sets, daily range): BP systolic 109–147; BP diastolic 66–81; PULSE 91–115; RESP 17–20; TEMP 97.6–99.9; O2SAT 94–99
[2024-09-13] MEDS: CEFEPIME HCL 2 GM in DEXTROSE 5%-WATER 50 ML IV SCH (01:31)
[2024-09-13] MEDS: PANTOPRAZOLE SODIUM 40 MG DR TABLET PO SCH (09:00)
[2024-09-14 00:29] VITALS: BP 146/93; PULSE 96; RESP 19; TEMP 98.4; O2SAT 97
[2024-09-14 04:17] VITALS: BP 137/89; PULSE 93; RESP 18; TEMP 98.4; O2SAT 97
[2024-09-14 06:59] LABS: BASOPHILS % (AUTO) 0.5 % (0.0-2.0); EOSINOPHILS % (AUTO) 0.3 % (1.0-6.0); HEMATOCRIT 37.4 % (41-53); HEMOGLOBIN 12.3 g/dL (13.5-17.5); LYMPHOCYTES # (AUTO) 1.4 K/uL (1.0-4.8); LYMPHOCYTES % (AUTO) 11.5 % (22.0-44.0); MEAN CORPUSCULAR HEMOGLOBIN 30.5 pg (26.0-34.0); MEAN CORPUSCULAR VOLUME 92 fL (80-100); MONOCYTES # (AUTO) 1.4 K/uL (0.1-1.0); MONOCYTES % (AUTO) 11.5 % (2.0-9.0); NEUTROPHILS # (AUTO) 9.5 K/uL (1.8-7.7); NEUTROPHILS % (AUTO) 76.2 % (40.0-70.0); PLATELET COUNT (AUTO) 354 K/uL (150-450); RED BLOOD CELL COUNT(AUTO) 4.05 MIL/uL (4.50-5.90); RED CELL DISTRIBUTION WIDTH 13.1 % (11.5-14.5); WHITE BLOOD COUNT (AUTO) 12.5 K/uL (4.5-11.0)
[2024-09-14 07:24] LABS: ANION GAP 15 mmol/L (8-16); CALCIUM, TOTAL 8.7 mg/dL (8.8-10.5); CARBON DIOXIDE 21 mmol/L (22-29); CHLORIDE 105 mmol/L (98-107); CREATININE 0.59 mg/dL (0.60-1.30); GLOMERULAR FILTR. RATE CALC > 60 mL/min (>60); GLUCOSE,RANDOM 88 mg/dL (70-110); POTASSIUM 3.2 mmol/L (3.5-5.1); SODIUM SERUM 141 mmol/L (136-145); UREA NITROGEN, BLOOD 7 mg/dL (7-18)
[2024-09-14 08:00] VITALS: BP 132/74; PULSE 94; RESP 19; TEMP 98.8; O2SAT 96
[2024-09-14 11:30] VITALS: BP 141/95; PULSE 113; RESP 19; TEMP 98.1; O2SAT 96
[2024-09-14] MEDS: POTASSIUM CHLORIDE 20 MEQ ER TABLET PO PRN (12:03)
[2024-09-14] MEDS: ACETAMINOPHEN 325 MG TABLET PO PRN (12:33)
[2024-09-14] MEDS ORDERED: MEBROFENIN TC99M/MCL ISOTOPE 1 EA INJ INJ ONE (14:15)
[2024-09-14 16:30] VITALS: BP 139/89; PULSE 105; RESP 18; TEMP 98; O2SAT 98
[2024-09-14 20:45] VITALS: BP 137/90; PULSE 89; RESP 18; TEMP 98.5; O2SAT 96
[2024-09-15 00:37] VITALS: BP 131/84; PULSE 81; RESP 19; TEMP 99.1; O2SAT 98
[2024-09-15 04:29] VITALS: BP 120/64; PULSE 66; RESP 18; TEMP 97.6; O2SAT 99
[2024-09-15 07:17] VITALS: BP 128/84; PULSE 88; RESP 18; TEMP 97.3; O2SAT 95
[2024-09-15] MEDS ORDERED: SODIUM CHLORIDE 0.9% 500 ML IV ONE (09:15)
[2024-09-15 11:14] VITALS: BP 131/79; PULSE 91; RESP 20; TEMP 99.4; O2SAT 95
[2024-09-15 12:24] LABS: BASOPHILS % (AUTO) 0.9 % (0.0-2.0); EOSINOPHILS % (AUTO) 0.5 % (1.0-6.0); HEMATOCRIT 36.5 % (41-53); HEMOGLOBIN 12.1 g/dL (13.5-17.5); LYMPHOCYTES # (AUTO) 1.7 K/uL (1.0-4.8); LYMPHOCYTES % (AUTO) 14.9 % (22.0-44.0); MEAN CORPUSCULAR HEMOGLOBIN 30.8 pg (26.0-34.0); MEAN CORPUSCULAR HGB CONC 33.1 G/dL (31.0-37.0); MEAN CORPUSCULAR VOLUME 93 fL (80-100); MONOCYTES % (AUTO) 9.1 % (2.0-9.0); NEUTROPHILS # (AUTO) 8.5 K/uL (1.8-7.7); NEUTROPHILS % (AUTO) 74.6 % (40.0-70.0); PLATELET COUNT (AUTO) 430 K/uL (150-450); RED BLOOD CELL COUNT(AUTO) 3.93 MIL/uL (4.50-5.90); RED CELL DISTRIBUTION WIDTH 13.3 % (11.5-14.5); WHITE BLOOD COUNT (AUTO) 11.5 K/uL (4.5-11.0)
[2024-09-15 12:37] LABS: ALANINE AMINOTRANSFERASE 54 U/L (12-78); ALBUMIN 2.5 g/dL (3.4-5.0); ALKALINE PHOSPHATASE 58 U/L (46-116); ANION GAP 10 mmol/L (8-16); ASPARTATE AMINOTRANSFERASE 65 U/L (15-37); BILIRUBIN,TOTAL 0.5 mg/dL (0.1-1.0); CALCIUM, TOTAL 8.4 mg/dL (8.8-10.5); CARBON DIOXIDE 25 mmol/L (22-29); CHLORIDE 109 mmol/L (98-107); GLOMERULAR FILTR. RATE CALC > 60 mL/min (>60); GLUCOSE,RANDOM 94 mg/dL (70-110); POTASSIUM 3.5 mmol/L (3.5-5.1); SODIUM SERUM 144 mmol/L (136-145); TOTAL PROTEIN, SERUM 6.3 g/dL (6.4-8.2); UREA NITROGEN, BLOOD 6 mg/dL (7-18)
[2024-09-15 13:05] VITALS: BP 128/79; PULSE 72; RESP 18; TEMP 98.2; O2SAT 96
[2024-09-15 20:10] VITALS: BP 145/80; PULSE 82; RESP 18; TEMP 98.3; O2SAT 95
[2024-09-16 07:36] LABS: BASOPHILS % (AUTO) 0.8 % (0.0-2.0); EOSINOPHILS % (AUTO) 0.7 % (1.0-6.0); HEMOGLOBIN 12.4 g/dL (13.5-17.5); LYMPHOCYTES # (AUTO) 1.7 K/uL (1.0-4.8); LYMPHOCYTES % (AUTO) 12.9 % (22.0-44.0); MEAN CORPUSCULAR HEMOGLOBIN 31.2 pg (26.0-34.0); MEAN CORPUSCULAR HGB CONC 33.5 G/dL (31.0-37.0); MEAN CORPUSCULAR VOLUME 93 fL (80-100); MONOCYTES # (AUTO) 1.3 K/uL (0.1-1.0); MONOCYTES % (AUTO) 10.1 % (2.0-9.0); NEUTROPHILS # (AUTO) 9.7 K/uL (1.8-7.7); NEUTROPHILS % (AUTO) 75.5 % (40.0-70.0); PLATELET COUNT (AUTO) 440 K/uL (150-450); RED BLOOD CELL COUNT(AUTO) 3.97 MIL/uL (4.50-5.90); RED CELL DISTRIBUTION WIDTH 13.3 % (11.5-14.5); WHITE BLOOD COUNT (AUTO) 12.8 K/uL (4.5-11.0)
[2024-09-16 07:48] LABS: ANION GAP 11 mmol/L (8-16); CALCIUM, TOTAL 8.6 mg/dL (8.8-10.5); CARBON DIOXIDE 24 mmol/L (22-29); CHLORIDE 108 mmol/L (98-107); CREATININE 0.59 mg/dL (0.60-1.30); GLOMERULAR FILTR. RATE CALC > 60 mL/min (>60); GLUCOSE,RANDOM 88 mg/dL (70-110); POTASSIUM 3.7 mmol/L (3.5-5.1); SODIUM SERUM 143 mmol/L (136-145); UREA NITROGEN, BLOOD 9 mg/dL (7-18)
[2024-09-16 08:30] VITALS: BP 143/96; PULSE 97; RESP 18; TEMP 97.8; O2SAT 98
[2024-09-16] MEDS: DEXTROSE 5%-0.45% SODIUM CHL 500 ML IV SCH (14:54)
[2024-09-16 20:20] VITALS: BP 136/88; PULSE 73; RESP 18; TEMP 98.9; O2SAT 96
[2024-09-17 04:06] VITALS: BP 138/92; PULSE 90; RESP 18; TEMP 98.6; O2SAT 95
[2024-09-17 09:14] VITALS: BP 147/91; PULSE 85; RESP 18; TEMP 99; O2SAT 94
[2024-09-17] MEDS: LITHIUM CITRATE SOLUTION 8 MEQ/5 ML [8 MEQ = 300 MG] UDCUP PO SCH (14:20)
[2024-09-17] MEDS: RisperiDONE CONC 2 MG/2 ML SOLUTION ORAL.SYG PO SCH (14:20)
[2024-09-17] MEDS: OXYMETAZOLINE HCL 0.05% 15 ML NASAL SPRAY NASAL SCH (14:20)
[2024-09-17 14:46] VITALS: BP 119/75; PULSE 58; RESP 18; O2SAT 98
[2024-09-17 15:24] LABS: GLUCOMETER DEV NAME(LOC) 6S.2; GLUCOSE,POINT OF CARE 116 MG/DL (70-110)
[2024-09-17 15:28] VITALS: BP 145/89; PULSE 85; RESP 18; TEMP 98.7; O2SAT 97
[2024-09-17 19:52] VITALS: BP 153/90; PULSE 90; RESP 18; TEMP 99; O2SAT 95
[2024-09-17] MEDS: ACETAMINOPHEN 650 MG RECTAL SUPPOSITORY PR PRN (20:50)
[2024-09-17] MEDS: VALPROIC ACID 250 MG/5 ML SOLUTION UDCUP PO SCH (21:48)
[2024-09-17] MEDS: MORPHINE SULFATE 2 MG/ML SYRINGE IVP PRN (21:56)
[2024-09-18 05:07] VITALS: BP 117/70; PULSE 76; RESP 18; TEMP 99.2; O2SAT 95
[2024-09-18] MEDS: BISACODYL 10 MG RECTAL RECTAL SUPPOSITORY PR PRN (05:08)
[2024-09-18 09:04] VITALS: BP 152/85; PULSE 89; RESP 18; TEMP 98.7; O2SAT 98
[2024-09-18] MEDS: *CLINICAL-PERIPHERAL PARENTERAL NUTRITION DOSING CLINICAL ONE (14:31)
[2024-09-18 15:41] LABS: CALCIUM, TOTAL 8.9 mg/dL (8.8-10.5); CARBON DIOXIDE 25 mmol/L (22-29); CREATININE 0.51 mg/dL (0.60-1.30); GLOMERULAR FILTR. RATE CALC > 60 mL/min (>60); GLUCOSE,RANDOM 99 mg/dL (70-110); POTASSIUM 3.9 mmol/L (3.5-5.1); SODIUM SERUM 138 mmol/L (136-145); UREA NITROGEN, BLOOD 11 mg/dL (7-18)
[2024-09-18 15:45] LABS: ALANINE AMINOTRANSFERASE 51 U/L (12-78); ALBUMIN 2.9 g/dL (3.4-5.0); ALKALINE PHOSPHATASE 70 U/L (46-116); ASPARTATE AMINOTRANSFERASE 39 U/L (15-37); BILIRUBIN,TOTAL 0.7 mg/dL (0.1-1.0); PHOSPHORUS 3.5 mg/dL (2.5-4.9); TOTAL PROTEIN, SERUM 7.2 g/dL (6.4-8.2)
[2024-09-18 15:50] LABS: ANION GAP 9 mmol/L (8-16); CHLORIDE 104 mmol/L (98-107)
[2024-09-18 16:04] VITALS: BP 129/82; PULSE 94; RESP 18; TEMP 99.7; O2SAT 94
[2024-09-18 19:55] VITALS: BP 129/83; PULSE 92; RESP 18; TEMP 99.3; O2SAT 94
[2024-09-18] MEDS: PPN SOLUTION 1 EA, MVI, ADULT NO.1 WITH VIT K 10 ML, FOLIC ACID 2 MG in AA 4.25%/CALCIU... IV SCH (22:32)
[2024-09-19 05:34] VITALS: BP 117/68; PULSE 71; RESP 18; TEMP 99.7; O2SAT 97
[2024-09-19 07:54] LABS: BASOPHILS % (AUTO) 0.7 % (0.0-2.0); HEMATOCRIT 39.7 % (41-53); HEMOGLOBIN 13.3 g/dL (13.5-17.5); LYMPHOCYTES # (AUTO) 2.4 K/uL (1.0-4.8); LYMPHOCYTES % (AUTO) 15.9 % (22.0-44.0); MEAN CORPUSCULAR HGB CONC 33.5 G/dL (31.0-37.0); MEAN CORPUSCULAR VOLUME 92 fL (80-100); MONOCYTES # (AUTO) 1.8 K/uL (0.1-1.0); MONOCYTES % (AUTO) 11.7 % (2.0-9.0); NEUTROPHILS # (AUTO) 10.5 K/uL (1.8-7.7); NEUTROPHILS % (AUTO) 69.7 % (40.0-70.0); PLATELET COUNT (AUTO) 549 K/uL (150-450); RED BLOOD CELL COUNT(AUTO) 4.29 MIL/uL (4.50-5.90); RED CELL DISTRIBUTION WIDTH 13.4 % (11.5-14.5)
[2024-09-19 08:05] LABS: ANION GAP 10 mmol/L (8-16); CALCIUM, TOTAL 8.9 mg/dL (8.8-10.5); CARBON DIOXIDE 26 mmol/L (22-29); CHLORIDE 104 mmol/L (98-107); CREATININE 0.57 mg/dL (0.60-1.30); GLOMERULAR FILTR. RATE CALC > 60 mL/min (>60); GLUCOSE,RANDOM 105 mg/dL (70-110); POTASSIUM 3.8 mmol/L (3.5-5.1); SODIUM SERUM 140 mmol/L (136-145); UREA NITROGEN, BLOOD 16 mg/dL (7-18)
[2024-09-19 08:15] LABS: MAGNESIUM 2.2 mg/dL (1.80-2.40); PHOSPHORUS 3.8 mg/dL (2.5-4.9)
[2024-09-19 09:22] VITALS: BP 119/86; PULSE 105; RESP 20; TEMP 98.8; O2SAT 96
[2024-09-19 16:24] VITALS: BP 131/99; PULSE 107; RESP 20; TEMP 99; O2SAT 96
[2024-09-19 17:03] VITALS: TEMP 98.7
[2024-09-19 19:34] VITALS: BP 133/89; PULSE 93; RESP 18; TEMP 98.9; O2SAT 94
[2024-09-20 05:10] VITALS: BP 133/83; PULSE 95; RESP 18; TEMP 98.7; O2SAT 96
[2024-09-20 07:38] LABS: ANION GAP 13 mmol/L (8-16); CALCIUM, TOTAL 9.1 mg/dL (8.8-10.5); CARBON DIOXIDE 26 mmol/L (22-29); CHLORIDE 102 mmol/L (98-107); CREATININE 0.62 mg/dL (0.60-1.30); GLOMERULAR FILTR. RATE CALC > 60 mL/min (>60); GLUCOSE,RANDOM 115 mg/dL (70-110); POTASSIUM 3.9 mmol/L (3.5-5.1); SODIUM SERUM 141 mmol/L (136-145); UREA NITROGEN, BLOOD 19 mg/dL (7-18)
[2024-09-20 07:50] LABS: MAGNESIUM 2.2 mg/dL (1.80-2.40); PHOSPHORUS 3.8 mg/dL (2.5-4.9)
[2024-09-20 08:02] LABS: BASOPHILS % (AUTO) 0.7 % (0.0-2.0); EOSINOPHILS % (AUTO) 1.2 % (1.0-6.0); HEMATOCRIT 41.7 % (41-53); LYMPHOCYTES # (AUTO) 1.3 K/uL (1.0-4.8); LYMPHOCYTES % (AUTO) 9.1 % (22.0-44.0); MEAN CORPUSCULAR HEMOGLOBIN 31.1 pg (26.0-34.0); MEAN CORPUSCULAR HGB CONC 33.6 G/dL (31.0-37.0); MEAN CORPUSCULAR VOLUME 93 fL (80-100); MONOCYTES # (AUTO) 1.5 K/uL (0.1-1.0); MONOCYTES % (AUTO) 10.5 % (2.0-9.0); NEUTROPHILS # (AUTO) 11.5 K/uL (1.8-7.7); NEUTROPHILS % (AUTO) 78.5 % (40.0-70.0); PLATELET COUNT (AUTO) 585 K/uL (150-450); RED CELL DISTRIBUTION WIDTH 13.3 % (11.5-14.5); WHITE BLOOD COUNT (AUTO) 14.6 K/uL (4.5-11.0)
[2024-09-20 08:56] VITALS: BP 134/104; PULSE 99; RESP 20; TEMP 98.8; O2SAT 96
[2024-09-20 16:29] VITALS: BP 141/103; PULSE 85; RESP 20; TEMP 98.7; O2SAT 96
[2024-09-20 19:25] VITALS: BP 146/85; PULSE 100; RESP 18; TEMP 98.4; O2SAT 96
[2024-09-21 04:48] VITALS: BP 142/79; PULSE 105; RESP 18; TEMP 98.5; O2SAT 94
[2024-09-21 08:46] LABS: BASOPHILS % (AUTO) 0.7 % (0.0-2.0); EOSINOPHILS % (AUTO) 0.7 % (1.0-6.0); HEMATOCRIT 42.5 % (41-53); HEMOGLOBIN 14.1 g/dL (13.5-17.5); LYMPHOCYTES # (AUTO) 1.1 K/uL (1.0-4.8); LYMPHOCYTES % (AUTO) 6.4 % (22.0-44.0); MEAN CORPUSCULAR HEMOGLOBIN 30.9 pg (26.0-34.0); MEAN CORPUSCULAR HGB CONC 33.1 G/dL (31.0-37.0); MEAN CORPUSCULAR VOLUME 94 fL (80-100); MONOCYTES # (AUTO) 1.3 K/uL (0.1-1.0); MONOCYTES % (AUTO) 7.4 % (2.0-9.0); NEUTROPHILS # (AUTO) 14.3 K/uL (1.8-7.7); NEUTROPHILS % (AUTO) 84.8 % (40.0-70.0); PLATELET COUNT (AUTO) 538 K/uL (150-450); RED BLOOD CELL COUNT(AUTO) 4.55 MIL/uL (4.50-5.90); RED CELL DISTRIBUTION WIDTH 13.4 % (11.5-14.5); WHITE BLOOD COUNT (AUTO) 16.9 K/uL (4.5-11.0)
[2024-09-21 08:51] LABS: RBC MORPHOLOGY COMMENT NORMAL RBC MORPH
[2024-09-21 08:55] LABS: ANION GAP 13 mmol/L (8-16); CALCIUM, TOTAL 9.3 mg/dL (8.8-10.5); CARBON DIOXIDE 25 mmol/L (22-29); CHLORIDE 104 mmol/L (98-107); CREATININE 0.64 mg/dL (0.60-1.30); GLOMERULAR FILTR. RATE CALC > 60 mL/min (>60); GLUCOSE,RANDOM 107 mg/dL (70-110); PHOSPHORUS 3.8 mg/dL (2.5-4.9); POTASSIUM 3.8 mmol/L (3.5-5.1); SODIUM SERUM 142 mmol/L (136-145); UREA NITROGEN, BLOOD 22 mg/dL (7-18)
[2024-09-21 12:31] VITALS: BP 125/77; PULSE 103; RESP 18; TEMP 99.8; O2SAT 96
[2024-09-21 15:27] VITALS: BP 132/81; PULSE 104; RESP 18; TEMP 99.1; O2SAT 97
[2024-09-21 20:38] VITALS: BP 139/89; PULSE 82; RESP 18; TEMP 101.2; O2SAT 95
[2024-09-21] MEDS: LORazepam 2 MG/ML VIAL IVP SCH (21:51)
[2024-09-21] MEDS: KETOROLAC TROMETHAMINE 15 MG/ML VIAL IVP ONE (22:30)
[2024-09-21] MEDS: SODIUM CHLORIDE 0.9% 250 ML IV ONE (22:30)
[2024-09-21] MEDS: ENOXAPARIN SODIUM 80 MG/0.8 ML PF SYRINGE SQ ONE (23:32)
[2024-09-22 01:32] VITALS: TEMP 100.3
[2024-09-22] MEDS ORDERED: IOHEXOL 350 MG/ML 100 ML VIAL ONE (01:37)
[2024-09-22 05:26] VITALS: BP 119/87; PULSE 82; RESP 22; TEMP 100.4; O2SAT 94
[2024-09-22 06:32] LABS: BASOPHILS % (AUTO) 0.5 % (0.0-2.0); EOSINOPHILS % (AUTO) 1.2 % (1.0-6.0); HEMATOCRIT 41.3 % (41-53); HEMOGLOBIN 13.4 g/dL (13.5-17.5); LYMPHOCYTES % (AUTO) 5.6 % (22.0-44.0); MEAN CORPUSCULAR HEMOGLOBIN 30.4 pg (26.0-34.0); MEAN CORPUSCULAR HGB CONC 32.6 G/dL (31.0-37.0); MEAN CORPUSCULAR VOLUME 93 fL (80-100); MONOCYTES # (AUTO) 1.6 K/uL (0.1-1.0); MONOCYTES % (AUTO) 8.9 % (2.0-9.0); NEUTROPHILS # (AUTO) 15.4 K/uL (1.8-7.7); NEUTROPHILS % (AUTO) 83.8 % (40.0-70.0); PLATELET COUNT (AUTO) 495 K/uL (150-450); RED BLOOD CELL COUNT(AUTO) 4.42 MIL/uL (4.50-5.90); RED CELL DISTRIBUTION WIDTH 13.6 % (11.5-14.5); WHITE BLOOD COUNT (AUTO) 18.3 K/uL (4.5-11.0)
[2024-09-22 06:45] LABS: ANION GAP 13 mmol/L (8-16); CALCIUM, TOTAL 9.4 mg/dL (8.8-10.5); CARBON DIOXIDE 25 mmol/L (22-29); CHLORIDE 106 mmol/L (98-107); GLOMERULAR FILTR. RATE CALC > 60 mL/min (>60); GLUCOSE,RANDOM 105 mg/dL (70-110); POTASSIUM 3.9 mmol/L (3.5-5.1); SODIUM SERUM 144 mmol/L (136-145); UREA NITROGEN, BLOOD 29 mg/dL (7-18)
[2024-09-22 06:51] LABS: GLUCOMETER DEV NAME(LOC) 6S.2; GLUCOSE,POINT OF CARE 110 MG/DL (70-110)
[2024-09-22 08:12] VITALS: BP 123/67; PULSE 74; RESP 20; TEMP 101.9; O2SAT 95
[2024-09-22 12:16] VITALS: BP 130/69; PULSE 74; RESP 18; TEMP 100.7; O2SAT 95
[2024-09-22 15:45] VITALS: BP 130/79; PULSE 72; RESP 18; TEMP 99.9; O2SAT 96
[2024-09-22] MEDS: PIPERACILLIN/TAZO 3.375 GM/D5W 50 ML IV SCH (15:59)
[2024-09-22 17:22] LABS: ALBUMIN 3.3 g/dL (3.4-5.0); BILIRUBIN,DIRECT 0.7 mg/dL (0.00-0.20); BILIRUBIN,TOTAL 1.5 mg/dL (0.1-1.0)
[2024-09-22 17:42] LABS: APPEARANCE,URINE CLEAR (CLEAR); BILIRUBIN,URINE NEGATIVE (NEGATIVE); COLOR,URINE YELLOW (YELLOW); GLUCOSE, URINE (UA) NEGATIVE (NEGATIVE); KETONES,URINE NEGATIVE (NEGATIVE); LEUKOCYTE ESTERASE ,URINE NEGATIVE (NEGATIVE); NITRATE,URINE NEGATIVE (NEGATIVE); OCCULT BLOOD,URINE NEGATIVE (NEGATIVE); PH,URINE 5.5 (5.0-8.0); PROTEIN,URINE 30-70 mg/dL (NEGATIVE); SPECIFIC GRAVITIY, URINE 1.028 (1.003-1.030)
[2024-09-22 18:09] LABS: BACTERIA,URINE Rare /HPF (None Seen); RBC,URINE None Seen /HPF (0-2); SQUAMOUS EPITHELIAL CELL,UR Rare /LPF (None Seen); WBC,URINE 0-2 /HPF (0-5)
[2024-09-22 18:35] LABS: INFLUENZA A-RTPCR,COMBO NEGATIVE (NEGATIVE); INFLUENZA B-RTPCR,COMBO NEGATIVE (NEGATIVE); RESPIRATORY SYNCYTIAL VRS-PCR NEGATIVE (NEGATIVE); SARS COVID19 RTPCR, COMBO NEGATIVE (NEGATIVE)
[2024-09-22 21:25] VITALS: BP 116/68; PULSE 68; RESP 18; TEMP 98.8; O2SAT 96
[2024-09-22] MEDS: SODIUM CHLORIDE IV SCH (23:00)
[2024-09-22] MEDS: PPN IV SCH (23:00)
[2024-09-22] MEDS: [UNRECOGNIZED DRUG - OTHER] IV SCH (23:00)
[2024-09-22] MEDS: POTASSIUM PHOS M BASIC D BASIC IV SCH (23:00)
[2024-09-23] MEDS: POTASSIUM PHOS M BASIC D BASIC IV SCH (00:04)
[2024-09-23] MEDS: PPN IV SCH (00:04)
[2024-09-23] MEDS: [UNRECOGNIZED DRUG - OTHER] IV SCH (00:04)
[2024-09-23] MEDS: SODIUM CHLORIDE IV SCH (00:04)
[2024-09-23 00:21] VITALS: BP 121/65; PULSE 68; RESP 19; TEMP 98.7; O2SAT 96
[2024-09-23 04:01] VITALS: BP 129/81; PULSE 68; RESP 20; TEMP 99.1; O2SAT 95
[2024-09-23 06:47] LABS: BASOPHILS % (AUTO) 0.7 % (0.0-2.0); EOSINOPHILS % (AUTO) 2.6 % (1.0-6.0); HEMATOCRIT 42.4 % (41-53); HEMOGLOBIN 13.9 g/dL (13.5-17.5); LYMPHOCYTES # (AUTO) 1.3 K/uL (1.0-4.8); LYMPHOCYTES % (AUTO) 7.7 % (22.0-44.0); MEAN CORPUSCULAR HEMOGLOBIN 30.7 pg (26.0-34.0); MEAN CORPUSCULAR HGB CONC 32.7 G/dL (31.0-37.0); MEAN CORPUSCULAR VOLUME 94 fL (80-100); MONOCYTES # (AUTO) 1.3 K/uL (0.1-1.0); MONOCYTES % (AUTO) 7.7 % (2.0-9.0); NEUTROPHILS # (AUTO) 13.4 K/uL (1.8-7.7); NEUTROPHILS % (AUTO) 81.3 % (40.0-70.0); PLATELET COUNT (AUTO) 467 K/uL (150-450); RED BLOOD CELL COUNT(AUTO) 4.52 MIL/uL (4.50-5.90); RED CELL DISTRIBUTION WIDTH 13.7 % (11.5-14.5); WHITE BLOOD COUNT (AUTO) 16.4 K/uL (4.5-11.0)
[2024-09-23 07:07] LABS: ALANINE AMINOTRANSFERASE 100 U/L (12-78); ALBUMIN 3.3 g/dL (3.4-5.0); ALKALINE PHOSPHATASE 128 U/L (46-116); ANION GAP 10 mmol/L (8-16); ASPARTATE AMINOTRANSFERASE 37 U/L (15-37); BILIRUBIN,TOTAL 1.4 mg/dL (0.1-1.0); CALCIUM, TOTAL 9.2 mg/dL (8.8-10.5); CARBON DIOXIDE 26 mmol/L (22-29); CHLORIDE 107 mmol/L (98-107); CREATININE 0.69 mg/dL (0.60-1.30); GLOMERULAR FILTR. RATE CALC > 60 mL/min (>60); GLUCOSE,RANDOM 105 mg/dL (70-110); PHOSPHORUS 4.5 mg/dL (2.5-4.9); POTASSIUM 3.5 mmol/L (3.5-5.1); SODIUM SERUM 143 mmol/L (136-145); TOTAL PROTEIN, SERUM 8.3 g/dL (6.4-8.2); UREA NITROGEN, BLOOD 27 mg/dL (7-18)
[2024-09-23 07:25] VITALS: BP 123/84; PULSE 68; RESP 18; TEMP 99; O2SAT 95
[2024-09-23 11:27] VITALS: BP 122/79; PULSE 74; RESP 18; TEMP 99.2; O2SAT 79; O2SAT 97
[2024-09-23] MEDS ORDERED: VALPROATE SODIUM 250 MG in DEXTROSE 5%-WATER 50 ML IV SCH (14:00)
[2024-09-23] MEDS: VALPROATE SODIUM 500 MG in DEXTROSE 5%-WATER 50 ML IV SCH (14:38)
[2024-09-23 15:31] VITALS: BP 138/87; PULSE 63; RESP 20; TEMP 99.5; O2SAT 94
[2024-09-23] MEDS: NYSTATIN 15 GM POWDER BOTTLE TP PRN (17:00)
[2024-09-23 20:35] VITALS: BP 112/71; PULSE 60; RESP 18; TEMP 97.8; O2SAT 96
[2024-09-24 00:55] VITALS: BP 122/73; PULSE 70; RESP 18; TEMP 98.9; O2SAT 97
[2024-09-24 04:23] VITALS: BP 123/77; PULSE 74; RESP 18; TEMP 98.7; O2SAT 97
[2024-09-24 06:44] LABS: BASOPHILS % (AUTO) 0.7 % (0.0-2.0); EOSINOPHILS % (AUTO) 2.6 % (1.0-6.0); HEMATOCRIT 41.7 % (41-53); HEMOGLOBIN 13.6 g/dL (13.5-17.5); LYMPHOCYTES # (AUTO) 1.8 K/uL (1.0-4.8); LYMPHOCYTES % (AUTO) 12.2 % (22.0-44.0); MEAN CORPUSCULAR HEMOGLOBIN 30.7 pg (26.0-34.0); MEAN CORPUSCULAR HGB CONC 32.6 G/dL (31.0-37.0); MEAN CORPUSCULAR VOLUME 94 fL (80-100); MONOCYTES # (AUTO) 0.9 K/uL (0.1-1.0); MONOCYTES % (AUTO) 6.3 % (2.0-9.0); NEUTROPHILS # (AUTO) 11.6 K/uL (1.8-7.7); NEUTROPHILS % (AUTO) 78.2 % (40.0-70.0); PLATELET COUNT (AUTO) 489 K/uL (150-450); RED BLOOD CELL COUNT(AUTO) 4.43 MIL/uL (4.50-5.90); RED CELL DISTRIBUTION WIDTH 13.5 % (11.5-14.5); WHITE BLOOD COUNT (AUTO) 14.8 K/uL (4.5-11.0)
[2024-09-24 07:04] LABS: ALANINE AMINOTRANSFERASE 81 U/L (12-78); ALBUMIN 3.2 g/dL (3.4-5.0); ALKALINE PHOSPHATASE 122 U/L (46-116); ANION GAP 11 mmol/L (8-16); ASPARTATE AMINOTRANSFERASE 29 U/L (15-37); CALCIUM, TOTAL 9.2 mg/dL (8.8-10.5); CARBON DIOXIDE 27 mmol/L (22-29); CHLORIDE 105 mmol/L (98-107); CREATININE 0.67 mg/dL (0.60-1.30); GLOMERULAR FILTR. RATE CALC > 60 mL/min (>60); GLUCOSE,RANDOM 100 mg/dL (70-110); PHOSPHORUS 3.8 mg/dL (2.5-4.9); SODIUM SERUM 143 mmol/L (136-145); TOTAL PROTEIN, SERUM 8.1 g/dL (6.4-8.2); UREA NITROGEN, BLOOD 25 mg/dL (7-18)
[2024-09-24 08:00] VITALS: BP 120/78; PULSE 66; RESP 18; TEMP 98.5; O2SAT 95
[2024-09-24] MEDS: PANTOPRAZOLE SODIUM 40 MG/VIAL IVP SCH (08:47)
[2024-09-24] MEDS ORDERED: SODIUM CHLORIDE 0.9% IV SCH (09:00)
[2024-09-24] MEDS ORDERED: PANTOPRAZOLE SODIUM IV SCH (09:00)
[2024-09-24] MEDS ORDERED: SODIUM CHLORIDE 0.9% 500 ML IV ONE (09:12)
[2024-09-24 12:00] VITALS: BP 132/83; PULSE 56; RESP 18; TEMP 99.1; O2SAT 97
[2024-09-24 16:00] VITALS: BP 128/69; PULSE 64; RESP 18; TEMP 99.1; O2SAT 97
[2024-09-24 19:37] VITALS: BP 117/79; PULSE 83; RESP 18; TEMP 97.7; O2SAT 95
[2024-09-24] MEDS: POTASSIUM PHOS M BASIC D BASIC IV SCH (22:49)
[2024-09-24] MEDS: SODIUM CHLORIDE IV SCH (22:49)
[2024-09-24] MEDS: [UNRECOGNIZED DRUG - OTHER] IV SCH (22:49)
[2024-09-24] MEDS: PPN IV SCH (22:49)
[2024-09-25 04:23] VITALS: BP 121/80; PULSE 76; RESP 18; TEMP 98.7; O2SAT 99
[2024-09-25 07:51] VITALS: BP 133/87; PULSE 90; RESP 18; TEMP 98.8; O2SAT 97
[2024-09-25 08:25] LABS: BASOPHILS % (AUTO) 0.6 % (0.0-2.0); HEMATOCRIT 38.7 % (41-53); HEMOGLOBIN 12.8 g/dL (13.5-17.5); LYMPHOCYTES # (AUTO) 1.5 K/uL (1.0-4.8); LYMPHOCYTES % (AUTO) 10.4 % (22.0-44.0); MEAN CORPUSCULAR HEMOGLOBIN 30.9 pg (26.0-34.0); MEAN CORPUSCULAR HGB CONC 33.2 G/dL (31.0-37.0); MEAN CORPUSCULAR VOLUME 93 fL (80-100); MONOCYTES # (AUTO) 0.9 K/uL (0.1-1.0); MONOCYTES % (AUTO) 6.6 % (2.0-9.0); NEUTROPHILS # (AUTO) 11.3 K/uL (1.8-7.7); NEUTROPHILS % (AUTO) 80.4 % (40.0-70.0); PLATELET COUNT (AUTO) 396 K/uL (150-450); RED BLOOD CELL COUNT(AUTO) 4.16 MIL/uL (4.50-5.90); RED CELL DISTRIBUTION WIDTH 13.3 % (11.5-14.5)
[2024-09-25 08:28] LABS: ANION GAP 9 mmol/L (8-16); CALCIUM, TOTAL 8.7 mg/dL (8.8-10.5); CARBON DIOXIDE 26 mmol/L (22-29); CHLORIDE 107 mmol/L (98-107); CREATININE 0.49 mg/dL (0.60-1.30); GLOMERULAR FILTR. RATE CALC > 60 mL/min (>60); GLUCOSE,RANDOM 90 mg/dL (70-110); POTASSIUM 3.3 mmol/L (3.5-5.1); SODIUM SERUM 142 mmol/L (136-145); UREA NITROGEN, BLOOD 17 mg/dL (7-18)
[2024-09-25] MEDS ORDERED: SODIUM CHLORIDE 0.9% 250 ML IV ONE ×2 (11:52→11:53)
[2024-09-25] MEDS: POTASSIUM CHL 10 MEQ/WATER 50 ML IV PRN (12:19)
[2024-09-25] MEDS ORDERED: SODIUM CHLORIDE 0.9% 1,000 ML ONE ×2 (12:41→14:02)
[2024-09-25] MEDS: SODIUM CHLORIDE 0.9% 1,000 ML IV ONE (14:00)
[2024-09-25 15:45] VITALS: BP 126/82; PULSE 71; RESP 18; TEMP 98.8; O2SAT 100
[2024-09-25 20:10] VITALS: BP 139/96; PULSE 77; RESP 18; TEMP 98.5; O2SAT 99
[2024-09-26 04:44] VITALS: BP 131/74; PULSE 83; RESP 28; TEMP 97.8; O2SAT 98
[2024-09-26 07:45] LABS: BASOPHILS % (AUTO) 1.1 % (0.0-2.0); EOSINOPHILS % (AUTO) 2.5 % (1.0-6.0); HEMATOCRIT 39.1 % (41-53); HEMOGLOBIN 12.9 g/dL (13.5-17.5); LYMPHOCYTES # (AUTO) 1.7 K/uL (1.0-4.8); LYMPHOCYTES % (AUTO) 14.8 % (22.0-44.0); MEAN CORPUSCULAR HEMOGLOBIN 30.6 pg (26.0-34.0); MEAN CORPUSCULAR HGB CONC 33.2 G/dL (31.0-37.0); MEAN CORPUSCULAR VOLUME 92 fL (80-100); MONOCYTES # (AUTO) 0.8 K/uL (0.1-1.0); MONOCYTES % (AUTO) 7.2 % (2.0-9.0); NEUTROPHILS # (AUTO) 8.5 K/uL (1.8-7.7); NEUTROPHILS % (AUTO) 74.4 % (40.0-70.0); PLATELET COUNT (AUTO) 390 K/uL (150-450); RED BLOOD CELL COUNT(AUTO) 4.23 MIL/uL (4.50-5.90); RED CELL DISTRIBUTION WIDTH 13.1 % (11.5-14.5); WHITE BLOOD COUNT (AUTO) 11.4 K/uL (4.5-11.0)
[2024-09-26 08:00] LABS: ANION GAP 11 mmol/L (8-16); CALCIUM, TOTAL 8.7 mg/dL (8.8-10.5); CARBON DIOXIDE 24 mmol/L (22-29); CHLORIDE 102 mmol/L (98-107); CREATININE 0.52 mg/dL (0.60-1.30); GLOMERULAR FILTR. RATE CALC > 60 mL/min (>60); GLUCOSE,RANDOM 98 mg/dL (70-110); PHOSPHORUS 3.6 mg/dL (2.5-4.9); SODIUM SERUM 137 mmol/L (136-145); UREA NITROGEN, BLOOD 12 mg/dL (7-18)
[2024-09-26 09:30] VITALS: BP 142/73; PULSE 87; RESP 20; TEMP 97; O2SAT 98
[2024-09-26 15:42] VITALS: BP 129/70; PULSE 77; RESP 18; TEMP 97.5; O2SAT 98
[2024-09-26 20:20] VITALS: BP 144/94; PULSE 91; RESP 18; TEMP 98; O2SAT 96
[2024-09-26] MEDS ORDERED: SODIUM CHLORIDE 0.9% 250 ML IV ONE (23:25)
[2024-09-27 04:29] VITALS: BP 125/84; PULSE 86; RESP 18; TEMP 98.4; O2SAT 98
[2024-09-27 07:24] VITALS: BP 134/82; PULSE 91; RESP 18; TEMP 98.2; O2SAT 98
[2024-09-27 07:42] LABS: BASOPHILS % (AUTO) 1.3 % (0.0-2.0); EOSINOPHILS % (AUTO) 3.4 % (1.0-6.0); HEMATOCRIT 38.9 % (41-53); LYMPHOCYTES # (AUTO) 1.9 K/uL (1.0-4.8); LYMPHOCYTES % (AUTO) 19.3 % (22.0-44.0); MEAN CORPUSCULAR HEMOGLOBIN 30.9 pg (26.0-34.0); MEAN CORPUSCULAR HGB CONC 33.3 G/dL (31.0-37.0); MEAN CORPUSCULAR VOLUME 93 fL (80-100); MONOCYTES # (AUTO) 0.5 K/uL (0.1-1.0); MONOCYTES % (AUTO) 5.4 % (2.0-9.0); NEUTROPHILS # (AUTO) 6.8 K/uL (1.8-7.7); NEUTROPHILS % (AUTO) 70.6 % (40.0-70.0); PLATELET COUNT (AUTO) 383 K/uL (150-450); RED BLOOD CELL COUNT(AUTO) 4.19 MIL/uL (4.50-5.90); RED CELL DISTRIBUTION WIDTH 13.5 % (11.5-14.5); WHITE BLOOD COUNT (AUTO) 9.7 K/uL (4.5-11.0)
[2024-09-27 08:03] LABS: ANION GAP 8 mmol/L (8-16); CALCIUM, TOTAL 8.9 mg/dL (8.8-10.5); CARBON DIOXIDE 26 mmol/L (22-29); CHLORIDE 104 mmol/L (98-107); GLOMERULAR FILTR. RATE CALC > 60 mL/min (>60); GLUCOSE,RANDOM 87 mg/dL (70-110); PHOSPHORUS 4.2 mg/dL (2.5-4.9); POTASSIUM 3.7 mmol/L (3.5-5.1); SODIUM SERUM 138 mmol/L (136-145); UREA NITROGEN, BLOOD 10 mg/dL (7-18)
[2024-09-27 18:09] VITALS: BP 138/87; PULSE 95; RESP 18; TEMP 97.9; O2SAT 100
[2024-09-27 21:09] VITALS: BP 128/84; PULSE 94; RESP 20; TEMP 98.3; O2SAT 95
[2024-09-28 03:55] VITALS: BP 134/85; PULSE 111; RESP 18; TEMP 97.7; O2SAT 97
[2024-09-28 08:12] VITALS: BP 124/70; PULSE 66; RESP 18; TEMP 97.8; O2SAT 99
[2024-09-28 10:24] LABS: ANION GAP 7 mmol/L (8-16); CALCIUM, TOTAL 9.2 mg/dL (8.8-10.5); CARBON DIOXIDE 28 mmol/L (22-29); CHLORIDE 102 mmol/L (98-107); CREATININE 0.51 mg/dL (0.60-1.30); GLOMERULAR FILTR. RATE CALC > 60 mL/min (>60); GLUCOSE,RANDOM 87 mg/dL (70-110); PHOSPHORUS 4.2 mg/dL (2.5-4.9); SODIUM SERUM 137 mmol/L (136-145); UREA NITROGEN, BLOOD 9 mg/dL (7-18)
[2024-09-28 15:20] VITALS: BP 122/64; PULSE 116; RESP 18; TEMP 97.8; O2SAT 98
[2024-09-28 19:56] VITALS: BP 131/84; PULSE 101; RESP 19; TEMP 99.3; O2SAT 97
[2024-09-29 05:51] VITALS: BP 110/64; PULSE 69; RESP 19; TEMP 97.7; O2SAT 100
[2024-09-29 07:48] VITALS: BP 112/61; PULSE 60; RESP 18; TEMP 98.1; O2SAT 98
[2024-09-29 17:27] VITALS: BP 134/61; PULSE 66; RESP 18; TEMP 98.6; O2SAT 97
[2024-09-29 19:51] VITALS: BP 119/74; PULSE 98; RESP 18; TEMP 98.2; O2SAT 98
[2024-09-30 04:07] VITALS: BP 106/77; PULSE 77; RESP 18; TEMP 98.2; O2SAT 99
[2024-09-30 08:12] VITALS: BP 129/74; PULSE 88; RESP 20; TEMP 98.4; O2SAT 99
[2024-09-30] MEDS: VALPROIC ACID 250 MG CAPSULE PO SCH (09:58)
[2024-09-30] MEDS: VALPROIC ACID 250 MG/5 ML SOLUTION UDCUP PO SCH (11:37)
[2024-09-30 16:24] VITALS: BP 116/81; PULSE 101; RESP 20; TEMP 94.6; O2SAT 98
[2024-09-30 20:25] VITALS: BP 130/94; PULSE 97; RESP 19; TEMP 97.9; O2SAT 97
[2024-10-01 04:44] VITALS: BP 131/89; PULSE 100; RESP 18; TEMP 98.8; O2SAT 98
[2024-10-01] MEDS: MAGNESIUM HYDROXIDE SUSPENSION 30 ML UDCUP PO PRN (06:44)
[2024-10-01 08:50] VITALS: BP 110/91; PULSE 87; RESP 18; TEMP 98.2; O2SAT 99
[2024-10-01 16:27] VITALS: BP 125/85; PULSE 107; RESP 18; TEMP 98; O2SAT 96
[2024-10-01 19:20] VITALS: BP 126/77; PULSE 101; RESP 19; TEMP 99; O2SAT 96
[2024-10-02 04:07] VITALS: BP 134/91; PULSE 101; RESP 19; TEMP 99; O2SAT 96
[2024-10-02 07:54] VITALS: BP 123/76; PULSE 101; RESP 18; TEMP 98.4; O2SAT 100
[2024-10-02] MEDS: LORazepam 2 MG/ML VIAL IVP ONE (09:50)
[2024-10-02 17:00] VITALS: BP 115/85; PULSE 85; RESP 20; TEMP 97.7; O2SAT 98
[2024-10-02] MEDS: HALOPERIDOL LACTATE 5 MG/ML VIAL IM PRN (18:03)
[2024-10-02 20:26] VITALS: BP 123/77; PULSE 109; RESP 18; TEMP 99.1; O2SAT 98
[2024-10-02] MEDS: LORazepam 2 MG/ML VIAL IVP PRN (22:23)
[2024-10-03 02:23] VITALS: BP 116/57; PULSE 115; RESP 18; TEMP 99; O2SAT 98
[2024-10-03 07:06] VITALS: BP 122/80; PULSE 108; RESP 20; TEMP 98.1; O2SAT 95
[2024-10-03 08:00] VITALS: BP 122/80; PULSE 108; RESP 20; TEMP 98.1; O2SAT 95
[2024-10-03 10:11] LABS: BASOPHILS % (AUTO) 1.4 % (0.0-2.0); EOSINOPHILS % (AUTO) 2.5 % (1.0-6.0); HEMATOCRIT 40.9 % (41-53); HEMOGLOBIN 13.7 g/dL (13.5-17.5); LYMPHOCYTES # (AUTO) 1.5 K/uL (1.0-4.8); LYMPHOCYTES % (AUTO) 18.9 % (22.0-44.0); MEAN CORPUSCULAR HEMOGLOBIN 31.4 pg (26.0-34.0); MEAN CORPUSCULAR HGB CONC 33.4 G/dL (31.0-37.0); MEAN CORPUSCULAR VOLUME 94 fL (80-100); MONOCYTES # (AUTO) 0.6 K/uL (0.1-1.0); MONOCYTES % (AUTO) 7.6 % (2.0-9.0); NEUTROPHILS # (AUTO) 5.5 K/uL (1.8-7.7); NEUTROPHILS % (AUTO) 69.6 % (40.0-70.0); PLATELET COUNT (AUTO) 365 K/uL (150-450); RED BLOOD CELL COUNT(AUTO) 4.35 MIL/uL (4.50-5.90); RED CELL DISTRIBUTION WIDTH 13.4 % (11.5-14.5); WHITE BLOOD COUNT (AUTO) 7.9 K/uL (4.5-11.0)
[2024-10-03 10:19] LABS: ANION GAP 8 mmol/L (8-16); CALCIUM, TOTAL 9.2 mg/dL (8.8-10.5); CARBON DIOXIDE 27 mmol/L (22-29); CHLORIDE 101 mmol/L (98-107); CREATININE 0.77 mg/dL (0.60-1.30); GLOMERULAR FILTR. RATE CALC > 60 mL/min (>60); GLUCOSE,RANDOM 142 mg/dL (70-110); POTASSIUM 3.7 mmol/L (3.5-5.1); SODIUM SERUM 136 mmol/L (136-145); UREA NITROGEN, BLOOD 7 mg/dL (7-18)
[2024-10-03 12:00] VITALS: BP 120/75; PULSE 111; RESP 19; TEMP 97.9; O2SAT 96
[2024-10-03 19:30] VITALS: BP 121/80; PULSE 96; RESP 18; TEMP 98.1; O2SAT 97
[2024-10-04 04:23] VITALS: BP 126/87; PULSE 105; RESP 18; TEMP 97.5; O2SAT 97
[2024-10-04 09:30] VITALS: BP 128/87; PULSE 100; RESP 20; TEMP 97.7; O2SAT 97
[2024-10-04 15:41] VITALS: BP 122/80; PULSE 105; RESP 20; TEMP 98.1; O2SAT 97
[2024-10-04 19:57] VITALS: BP 129/81; PULSE 102; RESP 18; TEMP 98.4; O2SAT 97
[2024-10-05 05:05] VITALS: BP 111/79; PULSE 91; RESP 18; TEMP 98.1; O2SAT 97
[2024-10-05 08:15] VITALS: BP 118/82; PULSE 101; RESP 18; TEMP 98; O2SAT 97
[2024-10-05 15:51] VITALS: BP 122/84; PULSE 94; RESP 18; TEMP 98.2; O2SAT 98
[2024-10-05 20:32] VITALS: BP 126/81; PULSE 109; RESP 14; TEMP 99.5; O2SAT 95
[2024-10-06 04:39] VITALS: BP 117/88; PULSE 101; RESP 17; TEMP 98.2; O2SAT 97
[2024-10-06 08:24] VITALS: BP 131/93; PULSE 100; RESP 20; TEMP 97.7; O2SAT 97
[2024-10-06] MEDS: QUEtiapine FUMARATE 25 MG TABLET PO SCH (11:19)
[2024-10-06] MEDS ORDERED: PANT-31 PO (16:42)
[2024-10-06] MEDS ORDERED: QUET25TA PO (16:43)
[2024-10-06 16:45] VITALS: BP 120/83; PULSE 113; RESP 20; TEMP 98.1; O2SAT 100
[2024-10-06] MEDS ORDERED: OXYM15SP63 NASAL (16:45)
[2024-10-06] MEDS ORDERED: ACET-2247 PO (16:46)
[2024-10-06] MEDS ORDERED: BISA-151 PO (16:47)
[2024-10-06] MEDS ORDERED: ALBU2.5V39 NEB (16:47)
[2024-10-06] MEDS ORDERED: HALO5VIA10 IM (16:55)
[2024-10-06 16:59] LABS: COVID AG,FIA SOURCE NASAL SWAB
[2024-10-06] MEDS ORDERED: MAGN-169 PO (17:01)
[2024-10-06] MEDS ORDERED: NYST30CR9 TP (17:02)
[2024-10-06 17:30] LABS: SARS-COV2 (COVID) ANTIGEN,FIA Negative (Negative)
[2024-10-06 19:34] VITALS: BP 128/96; PULSE 113; RESP 20; TEMP 99; O2SAT 99
== END 2024-10-07 00:10 | DRG 720 ==
LOC: EMS 09:20 → EDH 14:06 → 5S 15:23 → 6S 09-15 12:35 → 5N 09-22 09:05 → 4E 09-24 18:30 → 6S 09-29 15:35
PROVIDERS: ADMIT Hospitalist; ATTEND Hospitalist
PROC: GZ56ZZZ Individual Psychotherapy, Supportive (ICD-10-PCS; principal; 2024-09-17)
DX: A41.9 Sepsis, unspecified organism (principal); J96.91 Respiratory failure, unspecified with hypoxia; J69.0 Pneumonitis due to inhalation of food and vomit; F06.1 Catatonic disorder due to known physiological condition; E78.5 Hyperlipidemia, unspecified; F84.0 Autistic disorder; R29.6 Repeated falls; I10 Essential (primary) hypertension; Z20.822 Contact with and (suspected) exposure to COVID-19; F20.2 Catatonic schizophrenia; R62.7 Adult failure to thrive; D64.9 Anemia, unspecified; R13.10 Dysphagia, unspecified; L89.152 Pressure ulcer of sacral region, stage 2; J98.11 Atelectasis; R04.0 Epistaxis; Z68.26 Body mass index [BMI] 26.0-26.9, adult
CPT/HCPCS: 0241U; 36245; 36569; 71045; 71250; 71275; 74230; 76937; 78226; 80048; 80053; 80076; 81001; 81003; 82962; 83605; 83735; 84100; 84132; 85025; 85379; 87040; 87081; 87804; 92507; 92526; 92610; 92611; 97162; 99285; A9537; G0378; J0131; J0360; J0610; J0692; J1630; J1644; J1650; J1885; J2060; J2270; J2470; J2543; J3411; J3475; J3480; J3490; J7030; J7040; J7050; J7060; J7070; J7131; 36415-L1; 36415-TC